=== PATIENT | female | born 1975 | race African-American/Black ===

== ENCOUNTER 2023-08-04 12:32 | Inpatient (IN) ==
--- OUTSIDE RECORDS SUMMARY | 2023-08-04 12:35 | External Medical Summary | Summary of Care ---
Author Name Unknown Organization [facility] Address [address] [place] [address] Phone [phone] Care Team Providers Care Shoe Folder Name Role Phone Song Amezcua MD Primary Care Provider [phone] [phone] Reason for Visit * Reason Onset Date Comments Precert Approved 07/24/2023 WEGOVY Encounter Details Date Type Department Care Team (Late st Contact Info) Description 07/24/2023 Telephone Nutrition & Weight Management, [facility] [address] [place] [address] Gertrudis Hernandez PA-C [address] [place] [address] Precert Approved (WEGOVY ) Allergies Active Allergy Reactions Criticality Noted Date Comments Azithromycin Other (Please comment) Medium 01/08/2022 Tingling tounge Gadolinium Other (Please comment) 03/27/2023 Itchy tongue Iodinated Contrast Media Nausea/vomiting,Ot her (Please comment) Medium 10/13/2010 Pt states nausea and vomiting with IV contrast 20 years ago-allergy modified 07/03/2017. No premedication necessary Lanolin Other (Please comment) Medium 01/08/2022 Wound dehenscience Penicillins Edema airway High 01/08/2022 documented as of this encounter (statuses as of 07/31/2023) Medications Medication Sig Dispensed Refills Start Date End Date Status Omeprazole 20 MG Oral Capsule Delayed Release (PriLOSEC) Take 1 Capsule by mouth in the morning. Active Famotidine 20 MG Oral Tablet Take 1 Tablet by mouth in the morning and 1 Tablet before bedtime. Active Fluticasone Propionate 50 MCG/ACT Nasal Suspension Administer 1 [place] into nostril in the morning. Active Albuterol Sulfate (2.5 MG/3ML) 0.083% Inhalation Nebulization Solution Inhale 1 Vial via nebulizer every 6 hours as needed for Wheezing. Active Advair Diskus 250-50 MCG/ACT Inhalation Aerosol Powder Breath Activated inhale 1 puff by mouth twice a day 180 Each 3 05/09/2022 Active Albuterol Sulfate HFA 108 (90 Base) MCG/ACT Inhalation Aerosol SolutionIndication s:Bronchitis, complicated Inhale 2 Puffs by mouth every 6 hours as needed for Wheezing. 18 g 3 05/09/2022 Active Montelukast Sodium 10 MG Oral Tablet (Singulair)Indicat ions:Mild persistent asthma without complication take 1 tablet by mouth at bedtime 90 Tablet 3 08/31/2022 Active Docusate Sodium 100 MG Oral Capsule (Colace) Take 1 Capsule by mouth in the morning and 1 Capsule before bedtime. Active Polyethylene Glycol 3350 17 GM/SCOOP Oral Powder (MiraLax) Take 17 g by mouth in the morning. Active FLUoxetine HCl 20 MG Oral Capsule (PROzac)Indication s:Depression with anxiety Take 1 Capsule by mouth in the morning. To be started 2 weeks after starting 10 mg.. 60 Capsule 07/15/2023 Active Mirena (52 MG) 20 MCG/DAY Intrauterine Intrauterine Device (Levonorgestrel) Take by intrauterine route. 01/11/2023 Active Methocarbamol 500 MG Oral Tablet (Robamol) Take 1 Tablet by mouth. 07/20/2023 Active Wegovy 0.25 MG/0.5ML Subcutaneous Solution Auto-injector (Semaglutide-Weigh t Management)Indicat ions:Class 1 obesity due to excess calories without serious comorbidity with body mass index (BMI) of 31.0 to 31.9 in adult Inject 0.25 mg under the skin once a week. 2 mL 5 07/23/2023 Active FLUoxetine HCl 10 MG Oral Capsule (PROzac)Indication s:Depression with anxiety Take 1 Capsule by mouth in the morning for 14 days. 14 Capsule 07/15/2023 documented as of this encounter (statuses as of 07/31/2023) Active Problems Problem Noted Date Diagnosed Date PPD screening test 07/31/2022 History of bilateral mastectomy 01/08/2022 History of DVT in adulthood 01/08/2022 Mild persistent asthma without complication 12/26 Gastroesophageal reflux disease without esophagi tis 01/08/2022 Irritable bowel syndrome with constipation 01/08 Overweight (BMI 25.0-29.9) 01/08/2022 documented as of this encounter (statuses as of 07/31/2023) Immunizations Name Administration Dates Next Due Hepatitis B, 0-19 yrs 09/21/1997 PPD 07/10/2023,08/06/2022 Pneumococcal Polysaccharide PPV23 (Pneumovax) Seasonal Influenza Virus Vac cine, Unspecified Formulation 12/30/2021 Seasonal Influenza, PF, 6 M & above, IM , (FluLaval or Fluzone) 12/01/2022,12/30/2021 TD, Preservative Free 09/21/2001 TDAP (age 10 and older)(Boostrix) 03/26/2014, documented as of this encounter Social History Tobacco Use Types Packs/Day Years Used Date Smoking Tobacco: Former Cigarettes Q uit: 02/26/2004 Smokeless Tobacco: Never Alcohol Use Standard Drinks/Week Comments Yes 1 (1 standard drink = 0.6 oz pur e alcohol) Hunger Vital Sign Answer Date Recorded Within the past 12 months, y ou worried that your food would run out before you got the money to buy more. Never true 07/27/19 23 Within the past 12 months, t he food you bought just didn't last and you didn't have money to get more. Never true 07/26/2022 Sex and Gender Information Value Date Recorded Sex Assigned at Female 01/06/2022 9:37 AM EST Gender Identity Female 01/06/2022 9:37 AM EST Sexual Orientation Straight 01/06/2022 9: 37 AM EST Job Start Date Occupation Industry Not on file Not on file Not on file documented as of this encounter Miscellaneous Notes * Telephone Encounter - Anabella Marcano CMA - 07/31/2023 3:13 PM EDT Left pt a detailed message * Telephone Encounter - Anabella Marcano CMA - 07/26/2023 9:47 AM EDT Images from the original note were not included. New or re-auth: new authorization Approved/Denied: Approved Drug Name and Formulation: Wegovy 0.25MG/0.5ML auto-injectors How Prescribed(directions/sig): Sig - Route: Inject 0.25 mg under the skin once a week. - Subcutaneous Day Supply: 2ml per 28 days Did you receive insurance information from outside the chart? No, received insurance information within the chart Valid auth start date: 05/25/2023 Valid auth end date: 01/24/2024 Rx Insurance Info: [employer]O [employer]IL[employer]URN Reference #: [id number] Rx Benefits Verified through/on date: [facility] 07/24/2023 Referral (TE) received from: [facility] Medication Collections Associate II 07/25/23,8:14 AM * Telephone Encounter - Anabella Marcano CMA - 07/24/2023 11:49 AM EDT Please Start prior authorization for Wegovy 0.25 MG/0.5ML Subcutaneous Solution Auto-injector (Semaglutide-Weight Management) Diagnosis Class 1 obesity due to excess calories in adult, unspecified BMI, unspecified whether serious comorbidity present [E66.09] and Abnormal weight gain [R63.5] Patient qualifies for Weight loss medication due to BMI >30 or BMI >27 with obesity related comorbidity BMI Readings from Last 2 Encounters: 07/23/23 31.02 kg/m 07/15/23 31.64 kg/m Wt Readings from Last 2 Encounters: 07/23/23 86.5 kg (190 lb 11.2 oz) 07/15/23 88.9 kg (196 lb) Gertrudis Hernandez PA-C documented in this encounter Plan of Treatment Upcoming Encounters Date Type Department Care Team (Late st Contact Info) Description 08/02/2023 12:40 PM EDT Office Visit [facility] [address] [place] [address] Gertrudis Painter CRNP [address] [place] [address] 09/16/2023 8:00 AM EDT Office Visit [facility] [address] [place] [address] Ena Rehman CRNP [address] [place] [address] 02/06/2024 10:20 AM EST Office Visit Nutrition & Weight Management, [facility] [address] [place] [address] Gertrudis Hernandez PA-C [address] [place] [address] Health Maintenance Due Date Last Done Comments Depression Screening 1989 Hepatitis B (2 of 3 - 19+ 3-dose series) 10/19/1997 09/21/1997 Pap Smear 1998 HPV/Co-Test 12/01/2007 Pneumococcal Vaccine: Pediatrics (0 to 5 Years) and At-Risk Patients (6 to 64 Years) (2 of 2 - PCV) 03/26/2015 03/26/2014 *SPIROMETRY ONCE FOR ASTHMA-ADULT 01/10/2022 COVID-19 Vaccine (2022- season) 2022 11/22/2020, 03/26/2020, 03/08/2020 Cologuard 2022 Colonoscopy 2022 Colorectal Cancer Screening 2022 Fecal Occult Blood Test 2022 Sigmoidoscopy 2022 DTaP,Tdap,and Td Vaccines (3 - Td or Tdap) 03/26/2024 03/26/2014, 08/15/2009, 09/21/2001 Diabetes Screening 07/09/2026 07/10/2023, 1 03/10/2021, 02/08/2021, Additional history exists Cervical Cancer Screening 03/27/2028 Po stponed from 12/01/2007 (Done Elsewhere) Lipid Panel 07/09/2028 07/10/2023 Hepatitis C Screening Completed 12/27/2016 Influenza Vaccine (FLU shot) Completed 12/01/2022, 12/30/2021, 12/30/2021 GARDASIL-HPV IMMUNIZATION SERIES Aged Out No longer eligible based on patient's age to complete this topic HIV Screening Discontinued MENINGOCOCCAL (MENACTRA/MENVEO) Aged Out No longer eligible based on patient's age to complete this topic documented as of this encounter Medical Devices Not on filedocumented as of this encounter Care Teams Shoe Folder Relationship Specialty Start Date End Date Song Amezcua MD [address] [place] [address] PCP - General Family Medicine 01/08/22 documented as of this encounter
--- OUTSIDE RECORDS SUMMARY | 2023-08-04 12:35 | External Medical Summary | Summary of Care ---
Author Name Unknown Organization [facility] Address [address] [place] [address] Phone [phone] Care Team Providers Care Pharmacy Picking Technician Name Role Phone Song Amezcua MD Primary Care Provider [phone] [phone] Reason for Visit * Reason Onset Date Comments Precert Approved 07/24/2023 WEGOVY Encounter Details Date Type Department Care Team (Late st Contact Info) Description 07/24/2023 Telephone Nutrition & Weight Management, [facility] [email or web address] [place] [address] Gertrudis Hernandez PA-C [email or web address] [place] [address] Precert Approved (WEGOVY ) Allergies Active Allergy [...] as of this encounter (statuses as of 07/26/2023) Medications Medication Sig Dispensed Refills Start Date End Date Status Omeprazole 20 MG Oral Capsule Delayed Release (PriLOSEC) Take 1 Capsule by mouth in the morning. Active Famotidine 20 MG Oral Tablet Take 1 Tablet by mouth in the morning and 1 Tablet before bedtime. Active Fluticasone Propionate 50 MCG/ACT Nasal Suspension Administer 1 [place] into nostril in the morning. Active Albuterol [...] mouth in the morning. Active FLUoxetine HCl 10 MG Oral Capsule (PROzac)Indication s:Depression with anxiety Take 1 Capsule by mouth in the morning for 14 days. 14 Capsule 07/15/2023 07/29/2023 Active FLUoxetine HCl 20 MG Oral Capsule (PROzac)Indication s:Depression with anxiety Take 1 Capsule by mouth in the morning. To be started 2 weeks after starting 10 mg.. 60 Capsule 07/15/2023 09/13/2023 Active Mirena (52 MG) 20 MCG/DAY Intrauterine [...] a week. 2 mL 5 07/23/2023 Active documented as of this encounter (statuses as of 07/26/2023) Active Problems Problem Noted Date Diagnosed Date PPD screening test 07/31/2022 History of bilateral mastectomy 01/08/2022 History of DVT in adulthood 01/08/2022 Mild persistent asthma without complication 12/26 Gastroesophageal reflux disease without esophagi tis 01/08/2022 Irritable bowel syndrome with constipation 01/08 Overweight (BMI 25.0-29.9) 01/08/2022 documented as of this encounter (statuses as of 07/26/2023) Immunizations Name Administration Dates Next Due Hepatitis [...] end date: 01/24/2024 Rx Insurance Info: TOÑO WILBRUN Reference #: [id number] Rx Benefits Verified through/on date: [employer] 07/24/2023 Referral (TE) received from: [facility]cribing [facility] Medication Meat Cutting Block Repairer II 07/25/23,8:14 AM * Telephone Encounter - [...] Care Team (Late st Contact Info) Description 07/29/2023 11:40 AM EDT Office Visit [facility] [address] [place] [address] Gertrudis Painter CRNP [address] [place] [address] 09/16/2023 8:00 AM EDT Office Visit [facility] [address] [place] [address] Ena Rehman CRNP [address] [place] [address] 02/06/2024 10:20 AM EST Office Visit Nutrition & Weight Management, [facility] [address] [place] [address] Gertrudis Hernandez PA-C [address] [place] [address] Health Maintenance Due Date Last Done Comments Depression Screening 1989 Hepatitis B (2 of 3 - 19+ 3-dose series) 10/19/1997 09/21/1997 Pap Smear 1998 HPV/Co-Test 12/01/2007 Pneumococcal Vaccine: Pediatrics (0 to 5 Years) and At-Risk Patients (6 to 64 Years) (2 of 2 - PCV) 03/26/2015 03/26/2014 *SPIROMETRY ONCE FOR ASTHMA-ADULT 01/10/2022 COVID-19 Vaccine ( - 2022-24 season) 2022 11/22/2020, 03/26/2020, 03/08/2020 Cologuard 2022 [...] filedocumented as of this encounter Care Teams Pharmacy Picking Technician Relationship Specialty Start Date End Date Song Amezcua MD [address] [place] [address] PCP - General Family Medicine 01/08/22 documented as of this encounter
--- OUTSIDE RECORDS SUMMARY | 2023-08-04 12:35 | External Medical Summary | Summary of Care ---
Author Name Unknown Organization [facility] Address [address] [place] [address] Phone [phone] Care Team Providers Care Profiler Operator Name Role Phone Song Amezcua MD Primary Care Provider [phone] [phone] Reason for Visit * Reason Onset Date Comments Precert Approved 07/24/2023 WEGOVY Encounter Details Date Type Department Care Team (Late st Contact Info) Description 07/24/2023 Telephone Nutrition & Weight Management, [facility] [address] [place] [address] Gertrudis Hernandez PA-C [address] [place] [address] Precert Approved (WEGOVY ) Allergies Active Allergy [...] as of this encounter (statuses as of 07/25/2023) Medications Medication Sig Dispensed Refills Start Date End Date Status Omeprazole 20 MG Oral Capsule Delayed Release (PriLOSEC) Take 1 Capsule by mouth in the morning. Active Famotidine 20 MG Oral Tablet Take 1 Tablet by mouth in the morning and 1 Tablet before bedtime. Active Fluticasone Propionate 50 MCG/ACT Nasal Suspension Administer 1 [place] into nostril in the morning. Active Albuterol [...] as of this encounter (statuses as of 07/25/2023) Active Problems Problem Noted Date Diagnosed Date PPD screening test 07/31/2022 History of bilateral mastectomy 01/08/2022 History of DVT in adulthood 01/08/2022 Mild persistent asthma without complication 12/26 Gastroesophageal reflux disease without esophagi tis 01/08/2022 Irritable bowel syndrome with constipation 01/08 Overweight (BMI 25.0-29.9) 01/08/2022 documented as of this encounter (statuses as of 07/25/2023) Immunizations Name Administration Dates Next Due Hepatitis [...] Care Team (Late st Contact Info) Description 09/16/2023 8:00 AM EDT Office Visit Family Practice [facility] [address] [place] [address] Ena Rehman CRNP [address] [place] [address] 02/06/2024 10:20 AM EST Office Visit Nutrition & Weight Management, [facility] [address] [place] [address] Gertrudis Hernandez PA-C [address] [place] [address] Health Maintenance Due Date Last Done Comments Depression Screening 1989 Hepatitis B (2 of 3 - 19+ 3-dose series) 10/19/1997 09/21/1997 Pap Smear 1998 HPV/Co-Test 12/01/2007 Pneumococcal Vaccine: Pediatrics (0 to 5 Years) and At-Risk Patients (6 to 64 Years) (2 of 2 - PCV) 03/26/2015 03/26/2014 *SPIROMETRY ONCE FOR ASTHMA-ADULT 01/10/2022 COVID-19 Vaccine (4 - 24 season) 2022 11/22/2020, 03/26/2020, 03/08/2020 Cologuard 2022 [...] filedocumented as of this encounter Care Teams Profiler Operator Relationship Specialty Start Date End Date Song Amezcua MD [address] [place] [address] PCP - General Family Medicine 01/08/22 documented as of this encounter
--- OUTSIDE RECORDS SUMMARY | 2023-08-04 12:35 | External Medical Summary | Summary of Care ---
Author Name Unknown Organization [facility] Address [address] [place] [address] Phone [phone] Care Team Providers Care Cash Shortage Investigator Name Role Phone Song Amezcua MD Primary Care Provider [phone] [phone] Encounter Details Date Type Department Care Team (Late st Contact Info) Description 07/30/2023 Result Scan Unspecified Department <No scans attached> Allergies Active Allergy Reactions Criticality Noted Date [...] as of this encounter (statuses as of 08/01/2023) Medications Medication Sig Dispensed Refills Start Date End Date Status Omeprazole 20 MG Oral Capsule Delayed Release (PriLOSEC) Take 1 Capsule by mouth in the morning. Active Famotidine 20 MG Oral Tablet Take 1 Tablet by mouth in the morning and 1 Tablet before bedtime. Active Fluticasone Propionate 50 MCG/ACT Nasal Suspension Administer 1 [place] into nostril in the morning. Active Albuterol [...] as of this encounter (statuses as of 08/01/2023) Active Problems Problem Noted Date Diagnosed Date PPD screening test 07/31/2022 History of bilateral mastectomy 01/08/2022 History of DVT in adulthood 01/08/2022 Mild persistent asthma without complication 12/26 Gastroesophageal reflux disease without esophagi tis 01/08/2022 Irritable bowel syndrome with constipation 01/08 Overweight (BMI 25.0-29.9) 01/08/2022 documented as of this encounter (statuses as of 08/01/2023) Immunizations Name Administration Dates Next Due Hepatitis [...] on file documented as of this encounter Plan of Treatment Upcoming Encounters Date Type Department Care Team (Late st Contact Info) Description 08/02/2023 12:40 PM EDT Office Visit [facility] [address] [place] [address] Gertrudis Painter CRNP [address] [place] [address] 09/16/2023 8:00 AM EDT Office Visit [facility] [address] [place] [address] Ena Rehman CRNP [address] [place] [address] 02/06/2024 10:20 AM EST Office Visit Nutrition & Weight Management, [facility] [address] [place] [address] Gertrudis Hernandez PA-C [address] [place] [address] Health Maintenance Due Date Last Done Comments Depression Screening 1989 Hepatitis B (2 of 3 - 19+ 3-dose series) 10/19/1997 09/21/1997 Pap Smear 1998 HPV/Co-Test 12/01/2007 Pneumococcal Vaccine: Pediatrics (0 to 5 Years) and At-Risk Patients (6 to 64 Years) (2 of 2 - PCV) 03/26/2015 03/26/2014 *SPIROMETRY ONCE FOR ASTHMA-ADULT 01/10/2022 COVID-19 Vaccine ( season) 2022 11/22/2020, 03/26/2020, 03/08/2020 Cologuard 2022 [...] Not on filedocumented as of this encounter Procedures Procedure Name Priority Date/Time Associated Diagnosis Comments OUTSIDE LAB RESULTS 07/30/2023 documented in this encounter Results * OUTSIDE LAB RESULTS (07/30/2023) 07/30/2023 No Physician Data Unknown LABORATORY documented in this encounter Care Teams Cash Shortage Investigator Relationship Specialty Start Date End Date Song Amezcua MD [address] [facility] [place] [address] PCP - General Family Medicine 01/08/22 documented as of this encounter
--- OUTSIDE RECORDS SUMMARY | 2023-08-04 12:35 | External Medical Summary | Summary of Care ---
Author Name Unknown Organization [facility] Address [address] [place] [address] Phone [phone] Care Team Providers Care Rn Child Name Role Phone Song Amezcua MD Primary Care Provider [phone] [phone] Reason for Visit * Reason Onset Date Comments Precert In Process 07/24/2023 29 SLIM ADAM Encounter Details Date Type Department Care Team (Late st Contact Info) Description 07/24/2023 Telephone Nutrition & Weight Management, [facility] [address] [place] [address] Gertrudis Hernandez PA-C [address] [place] [address] Precert In Process ( SLIM LUNDBERG W... Allergies Active Allergy Reactions Criticality Noted Date [...] as of this encounter (statuses as of 07/24/2023) Medications Medication Sig Dispensed Refills Start Date End Date Status Omeprazole 20 MG Oral Capsule Delayed Release (PriLOSEC) Take 1 Capsule by mouth in the morning. Active Famotidine 20 MG Oral Tablet Take 1 Tablet by mouth in the morning and 1 Tablet before bedtime. Active Fluticasone Propionate 50 MCG/ACT Nasal Suspension Administer 1 [place] into nostril in the morning. Active Albuterol [...] as of this encounter (statuses as of 07/24/2023) Active Problems Problem Noted Date Diagnosed Date PPD screening test 07/31/2022 History of bilateral mastectomy 01/08/2022 History of DVT in adulthood 01/08/2022 Mild persistent asthma without complication 12/26 Gastroesophageal reflux disease without esophagi tis 01/08/2022 Irritable bowel syndrome with constipation 01/08 Overweight (BMI 25.0-29.9) 01/08/2022 documented as of this encounter (statuses as of 07/24/2023) Immunizations Name Administration Dates Next Due Hepatitis [...] 8:00 AM EDT Office Visit Family Practice [facility] [address] [place] [address] Ena Rehman CRNP [address] [place] [address] 02/06/2024 10:20 AM EST Office Visit Nutrition & Weight Management, [facility] [address] [place] [address] Gertrudis Hernandez PA-C [address] [place] [address] Health Maintenance Due Date Last Done Comments Depression Screening 1989 Hepatitis B (2 of 3 - 19+ 3-dose series) 10/19/1997 09/21/1997 Pap Smear 1998 HPV/Co-Test 12/01/2007 Pneumococcal Vaccine: Pediatrics (0 to 5 Years) and At-Risk Patients (6 to 64 Years) (2 of 2 - PCV) 03/26/2015 03/26/2014 *SPIROMETRY ONCE FOR ASTHMA-ADULT 01/10/2022 COVID-19 Vaccine (4 - 2022-24 season) 2022 11/22/2020, 03/26/2020, 03/08/2020 [...] filedocumented as of this encounter Care Teams Rn Child Relationship Specialty Start Date End Date Song Amezcua MD [address] [place] [address] PCP - General Family Medicine 01/08/22 documented as of this encounter
--- OUTSIDE RECORDS SUMMARY | 2023-08-04 12:36 | External Medical Summary | Summary of Care ---
Author Name Unknown Organization [facility] Address [address] [place] [address] Phone [phone] Care Team Providers Care Director Of Veterans Affairs Name Role Phone Song Amezcua MD Primary Care Provider [phone] [phone] Reason for Visit * Reason Onset Date Comments MyCode - Took Form To Consider 07/10/2023 Encounter Details Date Type Department Care Team (Late st Contact Info) Description 07/10/2023 Orders Only Outcomes Research Department [address] [place], [place] [id number] Fiorella Sibley CHRA MyCode Nonconsent Documentation Allergies Active Allergy Reactions Criticality Noted Date Comments Azithromycin Other (Please comment) Medium 01/08/2022 Tingling tounge Lanolin Other (Please comment) Medium 01/08/2022 Wound dehenscience Penicillins Edema airway High 01/08/2022 documented as of this encounter (statuses as of 07/10/2023) Medications Medication Sig Dispensed Refills Start Date End Date Status Omeprazole 20 MG Oral Capsule Delayed Release (PriLOSEC) Take 1 Capsule by mouth in the morning. 0 Active Famotidine 20 MG Oral Tablet Take 1 Tablet by mouth in the morning and 1 Tablet before bedtime. 0 Active Fluticasone Propionate 50 MCG/ACT Nasal Suspension Administer 1 [place] into nostril in the morning. 0 Active Albuterol Sulfate (2.5 MG/3ML) 0.083% Inhalation Nebulization Solution Inhale 1 Vial via nebulizer every 6 hours as needed for Wheezing. 0 Active Lubiprostone 8 MCG Oral Capsule (Amitiza) Take 1 Capsule by mouth 2 times a day with morning and evening meals. 0 Active Advair Diskus 250-50 MCG/ACT Inhalation Aerosol Powder Breath Activated inhale 1 puff by mouth twice a day 180 Each 3 05/09/2022 Active methylPREDNISolone 4 MG Oral Tablet Therapy Pack (Medrol Dosepack)Indications :Bronchitis, complicated follow package directions 21 Tablet 0 05/09/2022 Active Additional Information Patient not taking.Reported on 07/10/2023 Albuterol Sulfate HFA 108 (90 Base) MCG/ACT Inhalation Aerosol SolutionIndications: Bronchitis, complicated Inhale 2 Puffs by mouth every 6 hours as needed for Wheezing. 18 g 3 05/09/2022 Active Montelukast Sodium 10 MG Oral Tablet (Singulair)Indicatio ns:Mild persistent asthma without complication take 1 tablet by mouth at bedtime 90 Tablet 3 08/31/2022 Active documented as of this encounter (statuses as of 07/10/2023) Active Problems Problem Noted Date Diagnosed Date PPD screening test 07/31/2022 History of bilateral mastectomy 01/08/2022 History of DVT in adulthood 01/08/2022 Mild persistent asthma without complication 12/26 Gastroesophageal reflux disease without esophagi tis 01/08/2022 Irritable bowel syndrome with constipation 01/08 Overweight (BMI 25.0-29.9) 01/08/2022 documented as of this encounter (statuses as of 07/10/2023) Immunizations Name Administration Dates Next Due PPD 07/10/2023,08/06/2022 Seasonal Influenza, PF, 6 M & above, IM , (FluLaval or Fluzone) 12/01/2022,12/30/2021 TDAP (age 10 and older)(Boostrix) 03/26/2014 documented as of this encounter Social History [...] on file documented as of this encounter Progress Notes * Fiorella Sibley CHRA - 07/10/2023 8:19 AM EDT MyCode Nonconsent Documentation Brionnafamilia Simmons was approached in the clinic regarding participation in the MyCode Project and did not consent. documented in this encounter Plan of Treatment Upcoming Encounters Date Type Department Care Team (Late st Contact Info) Description 07/12/2023 8:20 AM EDT Nurse Only Ancillary Langjose miguel [facility] [address] [facility] [place] [address] [facility] [address] [facility] [place] [address] Health Maintenance Due Date Last Done Comments Lipid Panel 1977 Depression Screening 1989 Hepatitis B (2 of [...] Test 2022 Sigmoidoscopy 2022 DTaP,Tdap,and Td Vaccines (2 - Td or Tdap) 03/26/2024 03/26/2014 Diabetes Screening 01/08/2025 01/08/2022, 1 04/11/2020, 05/31/2020, Additional history exists Cervical Cancer Screening 03/27/2028 Po stponed from 12/01/2007 (Done Elsewhere) Hepatitis C Screening Completed 12/27/2016 Influenza Vaccine (FLU shot) Completed 12/01/2022, 12/30/2021, 12/30/2021 GARDASIL-HPV IMMUNIZATION SERIES Aged Out No longer eligible based on patient's age to complete this topic HIV Screening Discontinued MENINGOCOCCAL (MENACTRA/MENVEO) Aged Out No longer eligible based on patient's age to complete this topic documented as of this encounter Medical Devices Not on filedocumented as of this encounter Care Teams Director Of Veterans Affairs Relationship Specialty Start Date End Date Song Amezcua MD [address] [facility] [place] [address] PCP - General Family Medicine 01/08/22 documented as of this encounter
--- OUTSIDE RECORDS SUMMARY | 2023-08-04 12:36 | External Medical Summary | Summary of Care ---
Author Name Unknown Organization [facility] Address [address] [place] [address] Phone [phone] Care Team Providers Care Industrial Cafeteria Manager Name Role Phone Song Amezcua MD Primary Care Provider [phone] [phone] Reason for Visit * Reason Comments Outpatient Testing Encounter Details Date Type Department Care Team (Late st Contact Info) Description 07/10/2023 8:20 AM EDT Laboratory Laboratory, Health system [address] [place] [id number] [facility] [address] [place] [address] Screening for cardiovascular condition; Screening for diabetes mellitus; Encounter for long-term (current) use of medications Allergies Active Allergy Reactions Criticality Noted Date [...] Propionate 50 MCG/ACT Nasal Suspension Administer 1 [place] into nostril in the morning. 0 Active [...] 07/12/2023 8:20 AM EDT Nurse Only Ancillary [facility] [place] [address] [facility] [place] [address] Nurse Eleno Bee [address] [facility] [place] [address] Pending Results Name Type Priority Associated Diagnoses Date /Time LIPID PANEL WITH DIRECT LDL IF TG IS HIGH Lab Routine Screening for cardiovascular condition 07/10/2023 8:14 AM EDT BASIC METABOLIC PANEL Lab Routine Screening for diabetes mellitus 07/10/2023 8:14 AM EDT VITAMIN B12 Lab Routine Encounter for long-term (current) use of medications 07/10/2023 8:14 AM EDT MAGNESIUM Lab Routine Encounter for long-term (current) use of medications 07/10/2023 8:14 AM EDT Health Maintenance Due Date Last Done Comments [...] Not on filedocumented as of this encounter Visit Diagnoses Diagnosis Screening for cardiovascular condition Screening for other and unspecified cardiovascular conditions Screening for diabetes mellitus Encounter for long-term (current) use of medications Encounter for long-term (current) use of other medications documented in this encounter Care Teams Industrial Cafeteria Manager Relationship Specialty Start Date End Date Song Amezcua MD [address] [place] [address] PCP - General Family Medicine 01/08/22 documented as of this encounter
--- OUTSIDE RECORDS SUMMARY | 2023-08-04 12:36 | External Medical Summary | Summary of Care ---
Author Name Unknown Organization [facility] Address [address] [place] [address] Phone [phone] Care Team Providers Care Marketing Communications Coordinator Name Role Phone Song Amezcua MD Primary Care Provider [phone] [phone] Reason for Visit * Reason Onset Date Comments Pre Cert/Prior Auth 07/24/2023 Encounter Details Date Type Department Care Team (Late st Contact Info) Description 07/24/2023 Telephone Nutrition & Weight Management, [facility] [address] [place] [address] Gertrudis Hernandez PA-C [address] [place] [address] Pre Cert/Prior Auth Allergies Active Allergy Reactions Criticality Noted Date [...] Propionate 50 MCG/ACT Nasal Suspension Administer 1 [place] into nostril in the morning. Active Albuterol [...] 8:00 AM EDT Office Visit Family Practice [facility] [address] [place] [address] Ena Rehman CRNP [address] [place] [address] 02/06/2024 10:20 AM EST Office Visit Nutrition & Weight Management, [facility] [address] [place] [address] Gertrudis Hernandez PA-C [address] [place] [address] Health Maintenance Due Date Last Done Comments [...] filedocumented as of this encounter Care Teams Marketing Communications Coordinator Relationship Specialty Start Date End Date Song Amezcua MD [address] [facility] [place] [address] PCP - General Family Medicine 01/08/22 documented as of this encounter
--- OUTSIDE RECORDS SUMMARY | 2023-08-04 12:36 | External Medical Summary ---
Author Name Unknown Address Unknown Organization K[facility] [address] [place] [address] Laboratory Report Ordering Provider Test Date Status MARCELO JOSEPH 07/10/2023 08:14:49 Final Observation Date Value Abnormality Reference (Units ) Status Vitamin B12 07/10/2023 08:14:49 [id number] (pg/mL) Final Performing Location [facility] - [address] [place] [address]
--- OUTSIDE RECORDS SUMMARY | 2023-08-04 12:36 | External Medical Summary | Summary of Care ---
Author Name Unknown Organization [facility] Address [address] [place] [address] Phone [phone] Care Team Providers Care Cardiology Fellow Name Role Phone Song Amezcua MD Primary Care Provider [phone] [phone] Reason for Visit * Reason Comments Physical-Exam Encounter Details Date Type Department Care Team (Latest Contact Info) Description 07/10/2023 7:40 AM EDT Office Visit Family Practice [facility] [address] [place] [address] Ena Rehman CRNP [address] [place] [address] Well adult exam*; Screening for tuberculosis; Screening for cardiovascular condition; Screening for diabetes mellitus; Encounter for long-term (current) use of medications; Gastroesophageal reflux disease without esophagitis; Mild persistent asthma without complication Allergies Active Allergy Reactions Criticality Noted Date [...] Propionate 50 MCG/ACT Nasal Suspension Administer 1 [place] into nostril in the morning. 0 Active [...] on file documented as of this encounter Last Filed Vital Signs Vital Sign Reading Time Taken Comments Blood Pressure 110/70 07/10/2023 7:48 AM EDT Pulse 88 07/10/2023 7:48 AM EDT Temperature - - Respiratory Rate - - Oxygen Saturation - - Inhaled Oxygen Concentration - - Weight 88.5 kg (195 lb 1 oz) 07/10/2023 7:48 AM EDT Height 167.6 cm (5' 6") 07/10/2023 7:48 AM EDT Body Mass Index 31.48 07/10/2023 7:48 AM EDT documented in this encounter Progress Notes * Ena Rehman CRNP - 07/10/2023 7:49 AM EDT Images from the original note were not included. Wellness Family Medicine Visit History of Present Illness Brionna Simmons is a very pleasant 47 year old female with PMH listed below here today for wellness visit. Noticed black floaters and flashlight last week, saw eye doctor, diagnosed with posterior vitreous detachment. Going to [facility]. Moved from [place] 2 years ago. No fever, chills, chest pain, shortness of breath, headache, nausea, vomit, diarrhea, constipation or vision changes Social History Socioeconomic History Marital status: Spouse name: Not on file Number of children: Not on file Years of education: Not on file Highest education level: Not on file Occupational History Not on file Tobacco Use Smoking status: Former Current packs/day: 0.00 Types: Cigarettes Quit date: 02/26/2004 Years since quittin.3 Smokeless tobacco: Never Substance and Sexual Activity Alcohol use: Yes Alcohol/week: 1.0 standard drink of alcohol Types: 1 1.5 oz of liquor per week Drug use: Not on file Sexual activity: Not on file Other Topics Concern Not on file Social History Narrative Not on file Social Determinants of Health Financial Resource Strain: Not on file Food Insecurity: No Food Insecurity (07/26/2022) Hunger Vital Sign Worried About Running Out of Food in the Last Year: Never true Ran Out of Food in the Last Year: Never true Transportation Needs: Not on file Physical Activity: Not on file Stress: Not on file Social Connections: Not on file Intimate Partner Violence: Not on file Housing Stability: Not on file PMH: Past Medical History: Diagnosis Date Gastroesophageal reflux disease without esophagitis 01/08/2022 History of bilateral mastectomy 01/08/2022 History of DVT in adulthood 01/08/2022 Irritable bowel syndrome with constipation 01/08/2022 Mild persistent asthma without complication 01/08/2022 Overweight (BMI 25.0-29.9) 01/08/2022 No past surgical history on file. Outpatient Medications Marked as Taking for the 07/10/23 encounter (Office Visit) with Ena Rehman CRNP Medication Sig Montelukast Sodium 10 MG Oral Tablet (Singulair) take 1 tablet by mouth at bedtime Advair Diskus 250-50 MCG/ACT Inhalation Aerosol Powder Breath Activated inhale 1 puff by mouth twice a day Albuterol Sulfate HFA 108 (90 Base) MCG/ACT Inhalation Aerosol Solution Inhale 2 Puffs by mouth every 6 hours as needed for Wheezing. Albuterol Sulfate (2.5 MG/3ML) 0.083% Inhalation Nebulization Solution Inhale 1 Vial via nebulizer every 6 hours as needed for Wheezing. Famotidine 20 MG Oral Tablet Take 1 Tablet by mouth in the morning and 1 Tablet before bedtime. Fluticasone Propionate 50 MCG/ACT Nasal Suspension Administer 1 [place] into nostril in the morning. Omeprazole 20 MG Oral Capsule Delayed Release (PriLOSEC) Take 1 Capsule by mouth in the morning. Review of patient's allergies indicates: Allergen Reactions Penicillins Edema airway Azithromycin Other (Please comment) Tingling tounge Natures Second Skin [Lanolin] Other (Please comment) Wound dehenscience Most Recent Immunizations Administered Date(s) Administered COVID-19 mRNA, LNP-s, No Preserve, 2-Dose Series (AdvanDx) 11/22/2020 PPD 08/06/2022 Seasonal Influenza, PF, 6 M & above, IM , (FluLaval or Fluzone) 12/01/2022 TDAP (age 10 and older)(Boostrix) 03/26/2014 Review of Systems: Physical Exam BP 110/70 | Pulse 88 | Ht 1.676 m (5' 6") | Wt 88.5 kg (195 lb 1 oz) | BMI 31.48 kg/m | BSA 2.03 m Physical Exam Constitutional: Appearance: Normal appearance. She is well-developed and well-groomed. HENT: Head: Normocephalic. Right Ear: Tympanic membrane, ear canal and external ear normal. Left Ear: Tympanic membrane, ear canal and external ear normal. Nose: Nose normal. Mouth/Throat: Mouth: Mucous membranes are moist. Pharynx: Oropharynx is clear. Eyes: Extraocular Movements: Extraocular movements intact. Conjunctiva/sclera: Conjunctivae normal. Pupils: Pupils are equal, round, and reactive to light. Cardiovascular: Rate and Rhythm: Normal rate and regular rhythm. Pulses: Normal pulses. Heart sounds: Normal heart sounds. Pulmonary: Effort: Pulmonary effort is normal. Breath sounds: Normal breath sounds. Abdominal: General: Bowel sounds are normal. Palpations: Abdomen is soft. Musculoskeletal: General: Normal range of motion. Cervical back: Normal range of motion. Skin: General: Skin is warm and dry. Capillary Refill: Capillary refill takes less than 2 seconds. Neurological: General: No focal deficit present. Mental Status: She is alert. Psychiatric: Mood and Affect: Mood normal. Assessment and Plan 1. Well adult exam Colonoscopy done in 2021 due to family history - due 2026 per patient PAP/mammo - [facility]PG 2023 Pneumonia vaccine done last year per pt Discussed related HM topics 2. Screening for tuberculosis - PPD 3. Screening for cardiovascular condition - LIPID PANEL WITH DIRECT LDL IF TG IS HIGH; Future 4. Screening for diabetes mellitus - BASIC METABOLIC PANEL; Future 5. Encounter for long-term (current) use of medications - VITAMIN B12; Future - MAGNESIUM; Future 6. Gastroesophageal reflux disease without esophagitis Cont omeprazole 7. Mild persistent asthma without complication Cont advair daily Wrap-Up I spent a total of 20-29 minutes (exact time 25 mins) on the date of service in preparation, delivery, and documentation of the care provided to Brionna Simmons excluding any time spent in the performance of separately billed services. Ena Rehman, MSN, [facility] [place] documented in this encounter Plan of Treatment Upcoming Encounters Date Type Department Care Team (Late st Contact Info) Description 07/12/2023 8:20 AM EDT Nurse Only Ancillary [facility] [address] [facility] [place] [address] BeeNurse jose miguel [facility] [address] [facility] [place] [address] Pending Results Name Type Priority Associated Diagnoses [...] use of medications 07/10/2023 8:14 AM EDT Scheduled Orders Name Type Priority Associated Diagnoses Orde r Schedule LIPID PANEL WITH DIRECT LDL IF TG IS HIGH Lab Routine Screening for cardiovascular condition Expected: 07/10/2023 (Approximate), Expires: 07/09/2024 BASIC METABOLIC PANEL Lab Routine Screening for diabetes mellitus Expected: 07/10/2023 (Approximate), Expires: 07/09/2024 VITAMIN B12 Lab Routine Encounter for long-term (current) use of medications Expected: 07/10/2023 (Approximate), Expires: 07/09/2024 MAGNESIUM Lab Routine Encounter for long-term (current) use of medications Expected: 07/10/2023 (Approximate), Expires: 07/09/2024 Health Maintenance Due Date Last Done Comments Lipid Panel 1977 Depression Screening 1989 Hepatitis B (2 of 3 - 19+ 3-dose series) 10/19/1997 09/21/1997 Pap Smear 1998 HPV/Co-Test 12/01/2007 Pneumococcal Vaccine: Pediatrics (0 to 5 Years) and At-Risk Patients (6 to 64 Years) (2 of 2 - PCV) 03/26/2015 03/26/2014 *SPIROMETRY ONCE FOR ASTHMA-ADULT 01/10/2022 COVID-19 Vaccine (4 - season) 2022 11/22/2020, 03/26/2020, 03/08/2020 Cologuard 2022 [...] as of this encounter Visit Diagnoses Diagnosis Well adult exam- Primary Routine general medical examination at a health care facility Screening for tuberculosis Screening examination for pulmonary tuberculosis Screening for cardiovascular condition Screening for other and unspecified cardiovascular conditions Screening for diabetes mellitus Encounter for long-term (current) use of medications Encounter for long-term (current) use of other medications Gastroesophageal reflux disease without esophagitis Esophageal reflux Mild persistent asthma without complication Unspecified asthma documented in this encounter Care Teams Cardiology Fellow Relationship Specialty Start Date End Date Song Amezcua MD [address] [place] [address] PCP - General Family Medicine 01/08/22 documented as of this encounter
--- OUTSIDE RECORDS SUMMARY | 2023-08-04 12:36 | External Medical Summary | Summary of Care ---
Author Name Unknown Organization [facility] Address [address] [place] [address] Phone [phone] Care Team Providers Care Book Solicitor Name Role Phone Song Amezcua MD Primary Care Provider [phone] -[phone] Reason for Visit * Reason Onset Date Comments TB Test Reading 07/12/2023 Encounter Details Date Type Department Care Team (Late st Contact Info) Description 07/12/2023 8:20 AM EDT [facility] [address] [place] [address] [facility] [address] [place] [address] TB Test Reading Allergies Active Allergy Reactions Criticality Noted Date Comments Azithromycin Other (Please comment) Medium 01/08/2022 Tingling tounge Lanolin Other (Please comment) Medium 01/08/2022 Wound dehenscience Penicillins Edema airway High 01/08/2022 documented as of this encounter (statuses as of 07/12/2023) Medications Medication Sig Dispensed Refills Start Date End Date Status Omeprazole 20 MG Oral Capsule Delayed Release (PriLOSEC) Take 1 Capsule by mouth in the morning. 0 Active Famotidine 20 MG Oral Tablet Take 1 Tablet by mouth in the morning and 1 Tablet before bedtime. 0 Active Fluticasone Propionate 50 MCG/ACT Nasal Suspension Administer 1 [place] into nostril in the morning. 0 Active [...] as of this encounter (statuses as of 07/12/2023) Active Problems Problem Noted Date Diagnosed Date PPD screening test 07/31/2022 History of bilateral mastectomy 01/08/2022 History of DVT in adulthood 01/08/2022 Mild persistent asthma without complication 12/26 Gastroesophageal reflux disease without esophagi tis 01/08/2022 Irritable bowel syndrome with constipation 01/08 Overweight (BMI 25.0-29.9) 01/08/2022 documented as of this encounter (statuses as of 07/12/2023) Immunizations Name Administration Dates Next Due Hepatitis [...] as of this encounter Progress Notes * Selina Quintero MED ASSIST - 07/12/2023 8:42 AM EDT Patient here for PPD reading. Reading is Negative PPD Results: 0 mm Reading confirmed by physician, as per protocol documented in this encounter Plan of Treatment Upcoming Encounters Date Type Department Care Team (Late st Contact Info) Description 08/12/2023 7:40 AM EDT Office Visit Family Practice [facility] 132 [facility] [place] [address] Ena Rehman CRNP 132 [facility] [place] [address] Health Maintenance Due Date Last Done Comments [...] filedocumented as of this encounter Care Teams Book Solicitor Relationship Specialty Start Date End Date Song Amezcua MD [address] [place] [address] PCP - General Family Medicine 01/08/22 documented as of this encounter
--- OUTSIDE RECORDS SUMMARY | 2023-08-04 12:36 | External Medical Summary | Summary of Care ---
Author Name Unknown Organization [facility] Address [address] [place] [address] Phone [phone] Care Team Providers Care Business Systems Advisor Name Role Phone Song Amezcua MD Primary Care Provider [phone] Reason for Visit * Reason Comments Weight Management The pt stated she wo uld like to discuss weight loss * Evaluate & Treat - Unlimited Visits (Within 30 days (routine)) - Pending Review Specialty Diagnoses / Procedures Referred By Contact Referred To Contact GI NUTRITION/IM / Gastroenterology Diagnoses Class 1 obesity due to excess calories without serious comorbidity with body mass index (BMI) of 31.0 to 31.9 in adult Ena Rehman CRNP [address] [place] [address] Referral ID Status Reason Start Date Expiration Date Visits Requested Visits Authorized [id number] Pending Review Specialty Services Required 07/15/[phone] Encounter Details Date Type Department Care Team (Late st Contact Info) Description 07/23/2023 8:00 AM EDT Office Visit Nutrition & Weight Management, [facility] [address] [place] [address] Gertrudis Hernandez PA-C [address] [place] [place] [address] Class 1 obesity due to excess calories without serious comorbidity with body mass index (BMI) of 31.0 to 31.9 in adult*; Abnormal weight gain; Gastroesophageal reflux disease without esophagitis Allergies Active Allergy Reactions Criticality Noted Date [...] as of this encounter (statuses as of 07/23/2023) Medications Medication Sig Dispensed Refills Start Date End Date Status Omeprazole 20 MG Oral Capsule Delayed Release (PriLOSEC) Take 1 Capsule by mouth in the morning. Active Famotidine 20 MG Oral Tablet Take 1 Tablet by mouth in the morning and 1 Tablet before bedtime. Active Fluticasone Propionate 50 MCG/ACT Nasal Suspension Administer 1 [place] into nostril in the morning. Active Albuterol Sulfate (2.5 MG/3ML) 0.083% Inhalation Nebulization Solution Inhale 1 Vial via nebulizer every 6 hours as needed for Wheezing. Active Advair Diskus 250-50 MCG/ACT Inhalation Aerosol Powder Breath Activated inhale 1 puff by mouth twice a day 180 Each 3 3 Active Albuterol Sulfate HFA 108 (90 Base) MCG/ACT Inhalation Aerosol SolutionIndicatio ns:Bronchitis, complicated Inhale 2 Puffs by mouth every 6 hours as needed for Wheezing. 18 g 3 3 Active Montelukast Sodium 10 MG Oral Tablet (Singulair)Indica tions:Mild persistent asthma without complication take 1 tablet by mouth at bedtime 90 Tablet 3 3 Active Docusate Sodium 100 MG Oral Capsule (Colace) Take 1 Capsule by mouth in the morning and 1 Capsule before bedtime. Active Polyethylene Glycol 3350 17 GM/SCOOP Oral Powder (MiraLax) Take 17 g by mouth in the morning. Active FLUoxetine HCl 10 MG Oral Capsule (PROzac)Indicatio ns:Depression with anxiety Take 1 Capsule by mouth in the morning for 14 days. 14 Capsule 4 07/29/19 24 Active FLUoxetine HCl 20 MG Oral Capsule (PROzac)Indicatio ns:Depression with anxiety Take 1 Capsule by mouth in the morning. To be started 2 weeks after starting 10 mg.. 60 Capsule 4 09/13/19 24 Active Mirena (52 MG) 20 MCG/DAY Intrauterine Intrauterine Device (Levonorgestrel) Take by intrauterine route. 3 Active Methocarbamol 500 MG Oral Tablet (Robamol) Take 1 Tablet by mouth. 4 Active Wegovy 0.25 MG/0.5ML Subcutaneous Solution Auto-injector (Semaglutide-[employer])Indica tions:Class 1 obesity due to excess calories without serious comorbidity with body mass index (BMI) of 31.0 to 31.9 in adult Inject 0.25 mg under the skin once a week. 2 mL 5 4 Active Lubiprostone 8 MCG Oral Capsule (Amitiza) Take 1 Capsule by mouth 2 times a day with morning and evening meals. 07/23/19 24 Discontinued methylPREDNISolon e 4 MG Oral Tablet Therapy Pack (Medrol Dosepack)Indicati ons:Bronchitis, complicated follow package directions 21 Tablet 3 07/23/19 24 Discontinued documented as of this encounter (statuses as of 07/23/2023) Active Problems Problem Noted Date Diagnosed Date PPD screening test 07/31/2022 History of bilateral mastectomy 01/08/2022 History of DVT in adulthood 01/08/2022 Mild persistent asthma without complication 12/26 Gastroesophageal reflux disease without esophagi tis 01/08/2022 Irritable bowel syndrome with constipation 01/08 Overweight (BMI 25.0-29.9) 01/08/2022 documented as of this encounter (statuses as of 07/23/2023) Immunizations Name Administration Dates Next Due Hepatitis [...] Sign Reading Time Taken Comments Blood Pressure 122/70 07/23/2023 8:11 AM EDT Pulse 78 07/23/2023 8:11 AM EDT Temperature 36.7 C (98.1 F) 07/23/2023 8:11 AM ED T Respiratory Rate - - Oxygen Saturation 98% 07/23/2023 8:11 AM EDT Inhaled Oxygen Concentration - - Weight 86.5 kg (190 lb 11.2 oz) 07/23/2023 8:11 AM EDT Height 167 cm (5' 5.75") 07/23/2023 8:11 AM EDT Body Mass Index 31.02 07/23/2023 8:11 AM EDT documented in this encounter Patient Instructions * Patient Instructions* Gertrudis Hernandez PA-C - 07/23/2023 8:36 AM EDT Low sugar protein shake guidelines Calories: 150-250 calories/serving Protein: Minimum of 12 grams protein/serving Sugar: Maximum of 10-15 grams of sugar/serving Wegovy - Start wegovy: inject 0.25mg subcutaneous once weekly -The motor inspection mechanic website offers discount cards to help decrease the cost of the medication -The motor inspection mechanic website has tutorial videos on how to use the pen. If you are unsure or uncomfortable using the pen for the first time, make a nurse visit in our office for teaching. - Possible side effects of wegovy include but are not limited to: GI upset, constipation, nausea, vomiting, diarrhea, gallbladder disease, & pancreatitis -Wegovy should not be used by patients with a personal or family history of medullary thyroid cancer, multiple endocrine neoplasia type II or personal history of pancreatitis -Wegovy is not indicated in . Women of childbearing years should use an effective control medication while taking Wegovy and stop 2 months prior to actively trying to become . - pt qualifies for Weight loss medication due to BMI >30 or BMI >27 with obesity related comorbidity & has no apparent contraindications - Goal is to lose ~5% wt loss in 3mo documented in this encounter Progress Notes * Gertrudis Hernandez PA-C - 07/23/2023 8:10 AM EDT [facility] CONSULTATION INITIAL CONSULT Referring Physician: HARSHIL Marshall Nursing Notes: Puneet Bae LPN 07/23/23 0811 Sign at exiting of workspace Chief Complaint Patient presents with Weight Management The pt stated she would like to discuss weight loss Neck 12.5in Waist 37in Brionna Simmons is a 47 year old patient who presents to the [facility] for further recommendations. - Initial clinic visit 07/23/2023 Weight 190 lbs Height 65.75" Body mass index is 31.02 kg/m. Wt Readings from Last 6 Encounters: 07/23/23 86.5 kg (190 lb 11.2 oz) 07/15/23 88.9 kg (196 lb) 07/10/23 88.5 kg (195 lb 1 oz) 05/09/22 80 kg (176 lb 6.4 oz) 02/02/22 81.3 kg (179 lb 3.2 oz) 01/08/22 79.8 kg (176 lb) HPI: Visit 07/23/23 The patient suffers from Class I obesity Patient is interested in the following treatment options for obesity: possible medication use. Previous Weight Management Interventions: The patient has tried weight loss in the past without significant intermediate success. Previous interventions: Self-directed. Intermittent fasting Moved her a couple years ago-- was very fit around 160 and maintained Then had surgery and wasn't able to exercise Then started school and is working from home The patient confirms any past pharmacotherapy for weight loss Phentermine. Current Diet: Describes typical diet history/24 hr recall Breakfast: eggs, sausage or childress Snacks: Lunch: oatmeal, protein powder, dried cranberries Snacks: Dinner: chicken, salad Snacks: chuy crackers Drinks: water, 1 cup coffee Restaurant meals: several times a week Activity: ADL Past Medical History Glaucoma No Hypertension: No CAD: No Congestive heart failure No Dyslipidemia: No Lipid Panel Results: Results for orders placed or performed in visit on 07/10/23 LIPID PANEL WITH DIRECT LDL IF TG IS HIGH Result Value Ref Range Triglycerides 34 <=174 mg/dL Cholesterol 178 <200 mg/dL HDL Cholesterol 65 >49 mg/dL Non-HDL Cholesterol 113 <=159 mg/dL LDL Cholesterol 106 <=129 mg/dL DVT/PE, clotting disorder: Yes Stroke: No Seizures: No Sleep Apnea: No Asthma: Yes COPD: No Patient denies personal or family history of medullary thyroid carcinoma. Patient denies personal or family history of multiple endocrine neoplasia syndrome type II Patient denies personal history of pancreatitis Fatty Liver: no Diabetes: No Hemoglobin A1C last 3 results: Lab Results Component Value Date/Time HEMOGLOBIN, [id number] LAB 5.1 02/08/2021 10:30 AM HEMOGLOBIN, [id number] LAB 5.0 05/19/2020 01:42 PM Insulin Resistance: No PCOS: No GERD: Yes: Requiring medications: Yes History of nephrolithiasis: No. Osteoarthritis: No Anxiety/Depression: Yes Patient Active Problem List Diagnosis History of bilateral mastectomy History of DVT in adulthood Mild persistent asthma without complication Gastroesophageal reflux disease without esophagitis Irritable bowel syndrome with constipation Overweight (BMI 25.0-29.9) PPD screening test No past surgical history on file. Review of patient's allergies indicates: Allergen Reactions Penicillins Edema airway Azithromycin Other (Please comment) Tingling tounge Iodinated Contrast Media Nausea/vomiting and Other (Please comment) Pt states nausea and vomiting with IV contrast 20 years ago-allergy modified 07/03/2017. No premedication necessary Natures Second Skin [Lanolin] Other (Please comment) Wound dehenscience Gadolinium Other (Please comment) Itchy tongue Current Outpatient Medications Medication Sig Dispense Refill Omeprazole 20 MG Oral Capsule Delayed Release (PriLOSEC) Take 1 Capsule by mouth in the morning. Famotidine 20 MG Oral Tablet Take 1 Tablet by mouth in the morning and 1 Tablet before bedtime. Fluticasone Propionate 50 MCG/ACT Nasal Suspension Administer 1 [place] into nostril in the morning. Albuterol Sulfate (2.5 MG/3ML) 0.083% Inhalation Nebulization Solution Inhale 1 Vial via nebulizer every 6 hours as needed for Wheezing. Lubiprostone 8 MCG Oral Capsule (Amitiza) Take 1 Capsule by mouth 2 times a day with morning and evening meals. (Patient not taking: Reported on 07/10/2023) Advair Diskus 250-50 MCG/ACT Inhalation Aerosol Powder Breath Activated inhale 1 puff by mouth twice a day 180 Each 3 methylPREDNISolone 4 MG Oral Tablet Therapy Pack (Medrol Dosepack) follow package directions (Patient not taking: Reported on 07/10/2023) 21 Tablet 0 Albuterol Sulfate HFA 108 (90 Base) MCG/ACT Inhalation Aerosol Solution Inhale 2 Puffs by mouth every 6 hours as needed for Wheezing. 18 g 3 Montelukast Sodium 10 MG Oral Tablet (Singulair) take 1 tablet by mouth at bedtime 90 Tablet 3 Docusate Sodium 100 MG Oral Capsule (Colace) Take 1 Capsule by mouth in the morning and 1 Capsule before bedtime. Polyethylene Glycol 3350 17 GM/SCOOP Oral Powder (MiraLax) Take 17 g by mouth in the morning. FLUoxetine HCl 10 MG Oral Capsule (PROzac) Take 1 Capsule by mouth in the morning for 14 days. 14 Capsule 0 FLUoxetine HCl 20 MG Oral Capsule (PROzac) Take 1 Capsule by mouth in the morning. To be started 2 weeks after starting 10 mg.. 60 Capsule 0 No current facility-administered medications for this visit. No family history on file. 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 Negative for abdominal pain, diarrhea, nausea and vomiting. Psychiatric/Behavioral: Negative for dysphoric mood. The patient is not nervous/anxious. Menstrual Cycle: No Control: IUD Physical Examination: BP 122/70 | Pulse 78 | Temp 36.7 C (98.1 F) | Ht 1.67 m (5' 5.75") | Wt 86.5 kg (190 lb 11.2 oz) | SpO2 98% | BMI 31.02 kg/m | BSA 2 m Physical Exam Vitals and nursing note reviewed. Constitutional: Appearance: Normal appearance. HENT: Head: Normocephalic and atraumatic. Cardiovascular: Normal rate. Pulmonary: Effort: Pulmonary effort is normal. No respiratory distress. Neurological: Mental Status: Alert and oriented to person, place, and time. Psychiatric: Mood and Affect: Mood normal. Assessment and Recommendation: Abnormal weight gain Body mass index is 31.02 kg/m. Class I obesity. Discussed weight management options and would like to proceed with medication weight management. Barriers are consistency. Motivators are feeling better, avoiding/reducing comorbid conditions. Patient goals were discussed in detail at visit. IMPORTANT DIETARY CHANGES WHEN TAKING INJECTABLE WEIGHT LOSS MEDICATION PROTEIN!! Not getting enough protein can contribute to hair thinning, hair loss, muscle loss and fatigue. -Minimum 60g protein per day -Aim for 20g protein per meal -Eat protein first, then fruits and vegetables, starches last -Daily protein goal 60g-100g Work to eat small portions-- larger portions can lead to indigestion, nausea, vomiting, sulfur burps. - Do NOT skip meals--eat small frequent meals/snacks throughout the day - Eat slowly--take 20-30 minutes for each meal - Chew food thoroughly (to applesauce consistency) -Try eating and drinking by 30 min if struggling with intake Foods high in sugar and carbohydrates can lead to diarrhea. - Avoid sugar sweetened drinks including regular sodas, sweet tea, and fruit juice - Eat foods high in lean protein, vegetables, fruits, fiber, & whole grains - Limit processed foods, excess sugar, refined/white carbs, & fried foods Weight loss -Aim for 1-2 pounds per week weight loss -500 calorie to 1000 calorie per day deficit but no less than 0235-1365 calories per day Exercise goals -Goal of 150 minutes per week--can be divided up however you would like -Aim for aerobic activity and muscle strengthening activities. PLAN: Goals as above Anti obesity Medication Indications: BMI >30 or BMI >27 with obesity related comorbidity & no apparent contraindications Goal is to lose ~5% wt loss in 3 mo Wegovy/Saxenda/Zepbound: start wegovy Trace RichardKiesha powell Sergthomas: no coverage without type II diabetes diagnosis Wellbutrin: Naltrexone: Topamax: Phentermine: tried in the remote past Xenical: Metformin: Patient would like to try: wegovy Wegovy - Start wegovy: inject 0.25mg subcutaneous once weekly -The motor inspection mechanic website offers discount cards to help decrease the cost of the medication -The motor inspection mechanic website has tutorial videos on how to use the pen. If you are unsure or uncomfortable using the pen for the first time, make a nurse visit in our office for teaching. - Possible side effects of wegovy include but are not limited to: GI upset, constipation, nausea, vomiting, diarrhea, gallbladder disease, & pancreatitis -Wegovy should not be used by patients with a personal or family history of medullary thyroid cancer, multiple endocrine neoplasia type II or personal history of pancreatitis -Wegovy is not indicated in . Women of childbearing years should use an effective control medication while taking Wegovy and stop 2 months prior to actively trying to become . - pt qualifies for Weight loss medication due to BMI >30 or BMI >27 with obesity related comorbidity & has no apparent contraindications - Goal is to lose ~5% wt loss in 3mo Brionna was seen today for weight management. Diagnoses and all orders for this visit: Class 1 obesity due to excess calories without serious comorbidity with body mass index (BMI) of 31.0 to 31.9 in adult Goals as above - Wegovy 0.25 MG/0.5ML Subcutaneous Solution Auto-injector (Semaglutide-Weight Management); Inject 0.25 mg under the skin once a week. Abnormal weight gain Gastroesophageal reflux disease without esophagitis Continue PPI and pepcid May worsen with larger meals/portions with GLP-1 I spent a total of 40 minutes on the date of service in preparation, delivery, and documentation ofthe care provided to Brionna Simmons excluding any time spent in the performance of separately billed services. More than 50% of my time spent with patient providing counseling about the benefits of weight loss, about the patient's nutritional status, detailed explanations about calorie count, typesof nutrients to choose, and composition of the meals. Reviewed and discussed weight, weight trends and pertinent labs and test results. Motivational interview provided in order to prepare the patientto achieve future goals. The patient agreed to try all the plan discussed and return in three months. Patient was instructed to message or call in the meantime with any further concerns or questions. Gertrudis Hernandez PA-C, [facility] Nutrition and Weight Management [facility] ([facility]) documented in this encounter Nursing Notes * Puneet Bae LPN - 07/23/2023 8:11 AM EDT Chief Complaint Patient presents with Weight Management The pt stated she would like to discuss weight loss Neck 12.5in Waist 37in documented in this encounter Plan of Treatment Upcoming Encounters Date Type Department Care Team (Late st Contact Info) Description 09/16/2023 8:00 AM EDT Office Visit Family Practice [facility] [address] [address] Ena Rehman CRNP [address] [id number] 02/06/2024 10:20 AM EST Office Visit Nutrition & Weight Management, [facility] [address] [address] Gertrudis Hernandez PA-C [address] [address] Health Maintenance Due Date Last Done Comments [...] as of this encounter Visit Diagnoses Diagnosis Class 1 obesity due to excess calories without serious comorbidity with body mass index (BMI) of 31.0 to 31.9 in adult- Primary Abnormal weight gain Gastroesophageal reflux disease without esophagitis Esophageal reflux documented in this encounter Care Teams Business Systems Advisor Relationship Specialty Start Date End Date Song Amezcua MD [address] [place] [address] PCP - General Family Medicine 01/08/22 documented as of this encounter
--- OUTSIDE RECORDS SUMMARY | 2023-08-04 12:36 | External Medical Summary | Summary of Care ---
Author Name Unknown Organization [facility] Address [address] [place] [address] Phone [phone] Care Team Providers Care Referral Agent Name Role Phone Song Amezcua MD Primary Care Provider [phone] Reason for Referral * Evaluate & Treat - Unlimited Visits (Within 30 days (routine)) - Pending Review Specialty Diagnoses / Procedures Referred By Contact Referred To Contact GI NUTRITION/IM / Gastroenterology Diagnoses Class 1 obesity due to excess calories without serious comorbidity with body mass index (BMI) of 31.0 to 31.9 in adult Ena Rehman CRNP [address] [place] [address] Referral ID Status Reason Start Date Expiration Date Visits Requested Visits Authorized [id number] Pending Review Specialty Services Required 07/15/[phone] Question Answer Referral Priority Within 30 days (routine) Where should this appointment be scheduled? [facility] For what condition is the patient being seen? Weight Loss Medication Reason for Visit * Reason Comments Follow Up Pt here to discuss w eight loss, and asking what she can take to help with that. Encounter Details Date Type Department Care Team (Late st Contact Info) Description 07/15/2023 8:00 AM EDT Office Visit Family Practice [facility] [address] [address] Ena Rehman CRNP [address] [address] Depression with anxiety*; Class 1 obesity due to excess calories without serious comorbidity with body mass index (BMI) of 31.0 to 31.9 in adult Allergies Active Allergy Reactions Criticality Noted Date Comments Azithromycin Other (Please comment) Medium 01/08/2022 Tingling tounge Lanolin Other (Please comment) Medium 01/08/2022 Wound dehenscience Penicillins Edema airway High 01/08/2022 documented as of this encounter (statuses as of 07/15/2023) Medications Medication Sig Dispensed Refills Start Date End Date Status Omeprazole 20 MG Oral Capsule Delayed Release (PriLOSEC) Take 1 Capsule by mouth in the morning. Active Famotidine 20 MG Oral Tablet Take 1 Tablet by mouth in the morning and 1 Tablet before bedtime. Active Fluticasone Propionate 50 MCG/ACT Nasal Suspension Administer 1 Gratz into nostril in the morning. Active Albuterol Sulfate (2.5 MG/3ML) 0.083% Inhalation Nebulization Solution Inhale 1 Vial via nebulizer every 6 hours as needed for Wheezing. Active Lubiprostone 8 MCG Oral Capsule (Amitiza) Take 1 Capsule by mouth 2 times a day with morning and evening meals. Active Advair Diskus 250-50 MCG/ACT Inhalation Aerosol Powder Breath Activated inhale 1 puff by mouth twice a day 180 Each 3 05/09/2022 Active methylPREDNISolone 4 MG Oral Tablet Therapy Pack (Medrol Dosepack)Indication s:Bronchitis, complicated follow package directions 21 Tablet 05/09/2022 Active Additional Information Patient not taking.Reported on 07/10/2023 Albuterol Sulfate HFA 108 (90 Base) MCG/ACT Inhalation Aerosol SolutionIndications :Bronchitis, complicated Inhale 2 Puffs by mouth every 6 hours as needed for Wheezing. 18 g 3 05/09/2022 Active Montelukast Sodium 10 MG Oral Tablet (Singulair)Indicati ons:Mild persistent asthma without complication take 1 tablet by mouth at bedtime 90 Tablet 3 08/31/2022 Active Docusate Sodium 100 MG Oral Capsule (Colace) Take 1 Capsule by mouth in the morning and 1 Capsule before bedtime. Active Polyethylene Glycol 3350 17 GM/SCOOP Oral Powder (MiraLax) Take 17 g by mouth in the morning. Active FLUoxetine HCl 10 MG Oral Capsule (PROzac)Indications :Depression with anxiety Take 1 Capsule by mouth in the morning for 14 days. 14 Capsule 07/15/2023 07/29/2023 Active FLUoxetine HCl 20 MG Oral Capsule (PROzac)Indications :Depression with anxiety Take 1 Capsule by mouth in the morning. To be started 2 weeks after starting 10 mg.. 60 Capsule 07/15/2023 09/13/2023 Active documented as of this encounter (statuses as of 07/15/2023) Active Problems Problem Noted Date Diagnosed Date PPD screening test 07/31/2022 History of bilateral mastectomy 01/08/2022 History of DVT in adulthood 01/08/2022 Mild persistent asthma without complication 12/26 Gastroesophageal reflux disease without esophagi tis 01/08/2022 Irritable bowel syndrome with constipation 01/08 Overweight (BMI 25.0-29.9) 01/08/2022 documented as of this encounter (statuses as of 07/15/2023) Immunizations Name Administration Dates Next Due Hepatitis [...] Cigarettes Q uit: 02/26/2004 Smokeless Tobacco: Never Tobacco Cessation:Counseling Given: Not Answered Alcohol Use Standard Drinks/Week Comments Yes 1 [...] Sign Reading Time Taken Comments Blood Pressure 110/62 07/15/2023 8:07 AM EDT Pulse 55 07/15/2023 8:07 AM EDT Temperature 36.7 C (98 F) 07/15/2023 8:07 AM EDT Respiratory Rate 16 07/15/2023 8:07 AM EDT Oxygen Saturation - - Inhaled Oxygen Concentration - - Weight 88.9 kg (196 lb) 07/15/2023 8:07 AM EDT Height - - Body Mass Index 31.64 07/10/2023 7:48 AM EDT documented in this encounter Progress Notes * Ena Rehman CRNP - 07/15/2023 8:09 AM EDT Images from the original note were not included. Follow up Family Medicine Visit History of Present Illness Brionna Simmons is a very pleasant 47 year old female with PMH listed below presenting with mood andweight loss. 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 Anxiety, anhedonia, stress, and weight gain Interested in medication to help her symptoms Never had med for depression or anxiety Used to be very active and fit when working on floor Started back on lifestyle modification - Walking 10K x 3 times/ weeks. Eating not much -- smaller meals. Denies binge eating or drinking calories. Intermittent fasting was effective for her in past, plan to restart. Social History Socioeconomic History Marital status: Spouse [...] 01/08/2022 No past surgical history on file. Current Outpatient Medications Medication Sig Dispense Refill Docusate Sodium 100 MG Oral Capsule (Colace) Take 1 Capsule by mouth in the morning and 1 Capsule before bedtime. Polyethylene Glycol 3350 17 GM/SCOOP Oral Powder (MiraLax) Take 17 g by mouth in the morning. Montelukast Sodium 10 MG Oral Tablet (Singulair) take 1 tablet by mouth at bedtime 90 Tablet 3 Advair Diskus 250-50 MCG/ACT Inhalation Aerosol Powder Breath Activated inhale 1 puff by mouth twice a day 180 Each 3 Famotidine 20 MG Oral Tablet Take 1 Tablet by mouth in the morning and 1 Tablet before bedtime. Fluticasone Propionate 50 MCG/ACT Nasal Suspension Administer 1 Gratz into nostril in the morning. Omeprazole 20 MG Oral Capsule Delayed Release (PriLOSEC) Take 1 Capsule by mouth in the morning. Albuterol Sulfate HFA 108 (90 Base) MCG/ACT Inhalation Aerosol Solution Inhale 2 Puffs by mouth every 6 hours as needed for Wheezing. 18 g 3 methylPREDNISolone 4 MG Oral Tablet Therapy Pack (Medrol Dosepack) follow package directions (Patient not taking: Reported on 07/10/2023) 21 Tablet 0 Albuterol Sulfate (2.5 MG/3ML) 0.083% Inhalation Nebulization Solution Inhale 1 Vial via nebulizer every 6 hours as needed for Wheezing. Lubiprostone 8 MCG Oral Capsule (Amitiza) Take 1 Capsule by mouth 2 times a day with morning and evening meals. (Patient not taking: Reported on 07/10/2023) No current facility-administered medications for this visit. Review of patient's allergies indicates: Allergen Reactions Penicillins Edema airway Azithromycin Other (Please comment) Tingling tounge Natures Second Skin [Lanolin] Other (Please comment) Wound dehenscience Most Recent Immunizations Administered Date(s) Administered COVID-19 mRNA, LNP-s, No Preserve, 2-Dose Series ([employer]) 11/22/2020 Hepatitis B, 0-19 yrs 09/21/1997 PPD 07/10/2023 Pneumococcal Polysaccharide PPV23 (Pneumovax) 03/26/2014 Seasonal Influenza Virus Vaccine, Unspecified Formulation 12/30/2021 Seasonal Influenza, PF, 6 M & above, IM , (FluLaval or Fluzone) 12/01/2022 TD, Preservative Free 09/21/2001 TDAP (age 10 and older)(Boostrix) 03/26/2014 Review of Systems: Physical Exam BP 110/62 | Pulse 55 | Temp 36.7 C (98 F) (Tympanic) | Resp 16 | Wt 88.9 kg (196 lb) | BMI 31.64 kg/m | BSA 2.03 m Physical Exam Constitutional: Appearance: Normal appearance. HENT: Head: Normocephalic. Musculoskeletal: Cervical back: Neck supple. Skin: General: Skin is warm. Neurological: Mental Status: She is alert and oriented to person, place, and time. Psychiatric: Mood and Affect: Mood normal. Assessment and Plan 1. Depression with anxiety Discussed r/b/se -- pt agreeable to start prozac Continue therapy Will f/u win in 2 months - FLUoxetine HCl 10 MG Oral Capsule (PROzac); Take 1 Capsule by mouth in the morning for 14 days. Dispense: 14 Capsule; Refill: 0 - FLUoxetine HCl 20 MG Oral Capsule (PROzac); Take 1 Capsule by mouth in the morning. To be started2 weeks after starting 10 mg.. Dispense: 60 Capsule; Refill: 0 2. 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 I spent a total of 20-29 minutes (exact time 25 mins) on the date of service in preparation, delivery, and documentation of the care provided to Brionna Simmons excluding any time spent in the performance of separately billed services. Ena Rehman, MSN, [facility] documented in this encounter Plan of Treatment Upcoming Encounters Date Type Department Care Team (Late st Contact Info) Description 07/23/2023 8:00 AM EDT Office Visit Nutrition & Weight Management, [facility] [address] [address] Gertrudis Hernandez PA-C [address] [place] [address] 09/16/2023 8:00 AM EDT Office Visit Family Practice [facility] [address] [address] Ena Rehman CRNP [address] [address] Scheduled Referrals Name Type Priority Associated Diagnoses Orde r Schedule GI NUTRITION REFERRAL OP Referral Within 30 days (routine) Class 1 obesity due to excess calories without serious comorbidity with body mass index (BMI) of 31.0 to 31.9 in adult Ordered: 07/15/2023 Health Maintenance Due Date Last Done Comments Depression Screening 1989 Hepatitis B (2 of 3 - 19+ 3-dose series) 10/19/1997 09/21/1997 Pap Smear 1998 HPV/Co-Test 12/01/2007 Pneumococcal Vaccine: Pediatrics (0 to 5 Years) and At-Risk Patients (6 to 64 Years) (2 of 2 - PCV) 03/26/2015 03/26/2014 *SPIROMETRY ONCE FOR ASTHMA-ADULT 01/10/2022 COVID-19 Vaccine ( - 24 season) 2022 11/22/2020, 03/26/2020, 03/08/2020 [...] as of this encounter Visit Diagnoses Diagnosis Depression with anxiety- Primary Dysthymic disorder Class 1 obesity due to excess calories without serious comorbidity with body mass index (BMI) of 31.0 to 31.9 in adult documented in this encounter Care Teams Referral Agent Relationship Specialty Start Date End Date Song Amezcua MD [address] [place] [id number] PCP - General Family Medicine 01/08/22 documented as of this encounter"
--- OUTSIDE RECORDS SUMMARY | 2023-08-04 12:36 | External Medical Summary ---
Author Name Unknown Address Unknown Organization [id number]:[facility] [place] - [address] [facility] [address] Laboratory Report Ordering Provider Test Date Status JAKEROBERTSON 07/10/2023 08:14:49 Final Observation Date Value Abnormality Reference (Units ) Status Triglyceride 07/10/2023 08:14:49 34 <=174 ( mg/dL) Final Triglyceride Reference Range s (mg/dL):
<150 Acceptable
150-174 Borderline high
175-499 High
>=500 Very high Cholesterol 07/10/2023 08:14:49 178 <200 (mg /dL) Final Total Cholesterol Reference Ranges (mg/dL):
<200 Desirable
200-239 Borderline high
>=240 High HDL 07/10/2023 08:14:49 65 >49 (mg/dL ) Final HDL Cholesterol Reference Ra nges (mg/dL):
>=60 High (Desirable)
<50 Low (Undesirable) For Females
<40 Low (Undesirable) For Males NON-HDL CHOLESTEROL 07/10/2023 08:14:49 113 <=159 (mg/dL) Final Non-HDL Cholesterol Referenc e Range (mg/dL):
<100 Target level for high risk ASCVD patient
<130 Optimal for general population
130-159 Near optimal for general population
160-189 Borderline High
190-219 High
>=220 Very High LDL, (calculated) 07/10/2023 08:14:49 106 <= 129 (mg/dL) Final LDL Cholesterol Reference Ra nges (mg/dL):
<70 Target level for high risk ASCVD patient
<100 Optimal for general population
100-129 Near optimal for general population
130-159 Borderline high
160-189 High
>=190 Very high Performing Location [facility]ORY [facility] - [address] [place] [address]
--- OUTSIDE RECORDS SUMMARY | 2023-08-04 12:36 | External Medical Summary ---
Author Name Unknown Address Unknown Organization [id number] [address] [place] [address] Laboratory Report Ordering Provider Test Date Status MARCELO JOSEPH 07/10/2023 08:14:49 Final Observation Date Value Abnormality Reference (Units ) Status BUN 07/10/2023 08:14:49 10 6-20 (mg/dL) Final Creatinine 07/10/2023 08:14:49 0.9 0.5-1.0 (mg/dL) Final Glomerular filtration rate/1.73 sq M.predicted [Volume Rate/Area] in Serum, Plasma or Blood by Creatinine-based formula (CKD-EPI) 07/10/2023 08:14:49 81 >=60 (mL/min) Final eGFR is calculated based on the CKD-EPI 2020 equation Sodium 07/10/2023 08:14:49 140 135-146 (m mol/L) Final Potassium 07/10/2023 08:14:49 4.0 3.5-5.1 (m mol/L) Final Cl 07/10/2023 08:14:49 103 98-107 (mm ol/L) Final CO2 07/10/2023 08:14:49 28 22-32 (mmo l/L) Final Anion gap 07/10/2023 08:14:49 9 7-15 (mmol /L) Final Glucose 07/10/2023 08:14:49 90 70-120 (mg /dL) Final Calcium 07/10/2023 08:14:49 9.3 8.4-10.2 ( mg/dL) Final Performing Location [facility] [place] [address] - [address] [place] [address]
--- OUTSIDE RECORDS SUMMARY | 2023-08-04 12:36 | External Medical Summary ---
Author Name Unknown Address Unknown Organization [id number]:[facility] - [address] [place] [address] Laboratory Report Ordering Provider Test Date Status MARCELO JOSEPH 07/10/2023 08:14:49 Final Observation Date Value Abnormality Reference (Units ) Status Magnesium 07/10/2023 08:14:49 1.9 1.5-2.6 (m g/dL) Final Performing Location [facility]ATORY [facility] - [address] [place] [address]
--- NOTE | 2023-08-04 12:41 | Emergency Department Note ---
Impression & Plan Acute pericardial effusion, Volume overload, Dilation of pulmonary artery, Arthralgia, Lyme disease, SOB (shortness of breath) ED Provider Note CHIEF COMPLAINT: Face and neck swelling with shortness of breath HISTORY OF PRESENTING ILLNESS: This 47-year-old female patient presents to the emergency department for evaluation of swelling in her face and neck as well as shortness of breath. She gained 10 pounds in the past week. She was diagnosed with Lyme disease 2 days ago. She was started on Doxycycline 2 days ago when she saw her PCP. She has been in the ER in [place] twice since for "weird" symptoms. She then started with swelling in her bilateral legs 6 days ago. Has also been having a lot of joint pains that she thinks is coming from her Lyme Disease. Now her hands, face, and neck is swollen and she is SOB. The symptoms started before the Doxycycline, but has been getting worse. She has been on a steroid taper 5 days ago through the ER for possible cervical radiculopathy. She had an x-ray of her neck, but no other imaging and no CT scans in the ER. She has tightness in her chest, but not necessarily chest pain. She is also having abdominal pain and bilateral flank pain. Feels like her abdomen is filling up with fluid as well. Sometimes feels like her legs are 10 lbs each and has intermittent tingling. Denies fevers or URI symptoms. Denies any urinary symptoms or problems with her BMs. She has a Mirena so does not get her periods. She does not feel that there is a chance of . REVIEW OF SYSTEMS: See HPI for pertinent positives and pertinent negatives. ALLERGIES: Z-shane, nausea with contrast dye, Gadolinium, PCN MEDICATIONS: See below PAST MEDICAL HISTORY: See below PHYSICAL EXAM: VITALS: Vitals are noted on the nurse's note and reviewed by myself. GENERAL: No acute distress, non-diaphoretic. SKIN: No obvious rashes or abnormal skin lesions. Capillary reflex less than 2 seconds. HEAD: No scalp tenderness. No step-offs felt. EYES: Pupils equal round and reactive to light and accommodation. Conjunctivae without injection, sclerae without icterus. Extraocular movements intact without pain. NOSE: Patent, turbinates without inflammation or discharge. No sinus tenderness. No septal hematoma or bleeding. FACE: No facial bone tenderness. Full range of motion of the jaw without tenderness. No facial droop. MOUTH: Mucous membranes moist. Uvula midline. Airway patent. Tongue does not deviate. NECK: Supple without nuchal rigidity. Cervical spine is nontender. There is some fullness on both sides of the neck as well as the front of the neck. She is tender to palpation over these areas. No crepitus is felt. HEART: Regular rate and rhythm without murmurs gallops or rubs. LUNGS: Clear to auscultation bilaterally without wheezes, rales or rhonchi. No retractions or accessory muscle use. No chest wall tenderness. No crepitus felt. ABDOMEN: Positive bowel sounds x 4. Abdomen is slightly distended, but no obvious ascites. Soft, diffusely tender to palpation. No masses or organomegaly. No guarding or rebound tenderness. MUSCULOSKELETAL: No tenderness of the thoracic or lumbar spine or paraspinal muscles. The patient's bilateral lower extremities are edematous and tender to palpation mainly over the bilateral calves. No bony tenderness to palpation of the bilateral upper or lower extremities. Peripheral pulses 2+ and equal in the bilateral upper and lower extremities. NEURO: Patient was alert and oriented to person place and time. Normal mental status exam. Normal sensation to light and sharp touch. No focal neurological deficits. DIFFERENTIAL DIAGNOSIS: Differential diagnosis includes angina, NM, pericarditis, myocarditis, aortic dissection, pleurisy, pneumothorax, PE, pneumonia, pneumomediastinum, esophagitis, esophageal spasm, GERD, perforated esophagus, perforated duodenal/gastric ulcer, pancreatitis, cholecystitis, costochondritis, musculoskeletal, bronchitis, URI, hepatitis, pancreatitis, cholecystitis, cholelithiasis, appendicitis, kidney stone, pyelonephritis, UTI, gastritis, gastroenteritis, mesenteric adenitis, obstruction, constipation, hernia, abdominal abscess, perforation, diverticulitis, IBD, ischemic colitis, abdominal aortic aneurysm, , ectopic , ovarian cyst, ovarian torsion, acute salpingitis, or others. ED COURSE AND MEDICAL DECISION MAKING: MONITOR: Continuous classroom monitor: Order was placed for continuous classroom monitor. Patient was placed on the classroom monitor and continuous pulse ox. Patient was noted to be in normal sinus rhythm at an initial rate of 74 bpm per my interpretation. EKG: EKG was interpreted by myself as normal sinus rhythm at 88 bpm with possible left atrial enlargement and T wave abnormality. No acute ST elevation. No previous EKGs to compare. MEDICATIONS GIVEN: 500 mL normal saline solution bolus. Benadryl 50 mg IV, Zofran 4 mg IV, and Solu-Medrol 60 mg IV for pretreatment of the IV contrast. Magnesium 1 g IV. Potassium chloride 40 meq p.o. INTERPRETATION OF LABS: I interpreted the labs with full lab results as below in the lab section of this note. White blood cell count normal at 8.56. Hemoglobin low at 11.6. Platelet count normal at 237. Coags were normal. Potassium low at 3.2 and ALT elevated at 54, but CMP otherwise normal. Magnesium slightly low at 1.6. BNP elevated at 220. Lipase normal. Lactate and procalcitonin were normal. TSH normal. High-sensitivity troponin normal. Serum hCG negative. Urinalysis with trace ketones, but otherwise negative. Babesia and Anaplasma smear negative with DNA PCR still pending. INTERPRETATION OF IMAGING: Imaging studies were interpreted by myself and read by radiology as per the imaging section of this note. CT scans of the soft tissue neck with IV contrast showed a mildly enlarged and heterogeneous thyroid, but no other acute abnormalities. There are some pleural effusions noted in the upper chest. CTA of the chest and CT scan of the abdomen pelvis with IV contrast showed no evidence for PE. The heart is mildly enlarged and there is a small pericardial effusion. Small pleural effusions with dependent atelectasis. Dilation of the pulmonary trunk suggestive of pulmonary artery hypertension. The bladder wall appears circumferentially thickened and should be correlated with urinalysis. Free fluid in the cul-de-sac is nonspecific and likely physiologic. Venous Doppler of the bilateral lower extremities was negative for DVT, SVT, or other acute abnormalities. CONSULTATIONS: On-call hospitalist MDM SUMMARY: I examined the patient. The patient states that she has been having "weird" symptoms since . She was seen twice in the ER in [place]. The patient states that she has had increasing swelling in her legs, neck, abdomen, and chest and has gained 10 pounds. She is also now feeling short of breath and has pain in her neck and abdomen as well as her legs. She was just diagnosed with Lyme disease 2 days ago and started on doxycycline. She is concerned because her symptoms are getting progressively worse. An IV lock was placed and labs were drawn. Laboratory studies as above with hemoglobin of 11.6, magnesium 1.6, potassium 3.2, and BNP 220. Remainder of the studies without significant abnormalities. EKG shows nonspecific changes, but high-sensitivity troponin normal. CT scans of the soft tissue neck with IV contrast, CTA of the chest, and CT of the abdomen pelvis with IV contrast shows a mildly enlarged heart with a small pericardial effusion as well as small pleural effusions and dependent atelectasis. The patient also has dilation of the pulmonary trunk suggestive of pulmonary artery hypertension which is new per patient. The patient was recently diagnosed with Lyme disease and there is concern for possible Lyme carditis. The patient may also be experiencing an initial episode of CHF versus other etiologies. I had a meaningful discussion about this patient with Dr. Rizo who agrees with my assessment and the treatment plan. We feel the patient requires admission for further evaluation and treatment. I spoke with the on-call hospitalist who agrees to admit the patient for further management. Please refer to their dictation for further details. The patient's care was transferred in stable condition. DIAGNOSIS: Pericardial effusion Possible pulmonary hypertension Elevated BNP Shortness of breath Joint pains Recent diagnosis of Lyme disease Past Med/Surg History Problem List (Updated 08/04/23 @ 20:14 by Sujatha López PA-C) SOB (shortness of breath) (Acute) Acute pericardial effusion (Acute) Lyme disease (Acute) Fatigue Arthralgia (Acute) Anemia Dilation of pulmonary artery (Acute) Volume overload (Acute) Superficial thrombophlebitis catheter-associated in R antecub managed with eliquis for short term Deficiency of von Willebrand factor Patient was [id number] on her testing, but has h/o postop bleeding and dehiscence that was corrected with DDAVP use during other surgeries. Asthma Abnormal uterine bleeding (AUB) Hot flashes Fibroids Endometriosis determined by laparoscopy Medical History Family history of reaction to anesthesia father - nausea. Nausea after anesthesia Blood disorder Pt has hx of bleeding issues after surgery and wound dehiscence / testing done and inconclusive. GERD (gastroesophageal reflux disease) IBS (irritable bowel syndrome) History of blood clots s/p surgery , near iv placement area - right arm. 3 yr ago. Blood thinner and since discontinued. Asthma well controlled/last use rescue inhaler last week /weather changes percautionary /no symptoms. Surgical History History of D&C History of endoscopy History of colonoscopy History of colposcopy maybe around age 20-25. She's not 100% sure in that range when it occurred. S/P section H/O mastectomy 2019. Prophy for fam hx of breast cancer and many personal breast surgeries with implants failing in 2021 that were subsequently fixed Dec 2021; found pre-cancer at time of mastectomy. Family History Grandmother (Maternal) Breast cancer great grandmother Aunt Breast cancer maternal paternal Colorectal cancer paternal Father Prostate cancer Brother Prostate cancer Grandfather (Maternal) Prostate cancer Grandfather (Paternal) Prostate cancer Uncle Prostate cancer Denies family history of Ovarian cancer Social History Smoking Status: Former smoker Tobacco Type: Cigarettes Do You Dip or Chew Tobacco: No; Hx Alcohol Use: No Hx Substance Use: No Preferred Language: Ukrainian Communication Ability: Effective Market Manager Required: No Beliefs That Will Affect Care: None Current Living Situation: Spouse and Family Feels Safe at Home: Yes Assistive Devices: Contacts and Glasses Allergies Allergies Allergy/AdvReac Type Severity Reaction Status Date / Time azithromycin Allergy Intermediate tingly Verified 08/04/23 16:17 [From Zithromax Z-Shane] mouth and tongue Gadolinium-Containing Allergy Intermediate tingling Verified 08/04/23 16:17 Contrast Medi mouth and tongue Penicillins Allergy Intermediate tingly Verified 08/04/23 16:17 mouth and tongue contrast dye Allergy Intermediate tingling Uncoded 08/04/23 16:17 mouth and tongue sutures AdvReac Severe polysorb Uncoded 08/04/23 16:17 and monocryl - wound dehiscencse. Home Meds Home Medications Medication Instructions Recorded Confirmed albuterol sulfate 90 mcg/actuation 1 inh inhalation UD PRN asthma 01/11/23 08/04/23 aerosol inhaler fluticasone 250 mcg-salmeterol 50 1 ea inhalation BID 01/11/23 08/04/23 mcg/dose blistr powdr for inhalation (Advair Diskus) levonorgestrel 21 mcg/24 hr (up to 1 device intrauterine CONTINOUS 01/11/23 08/04/23 8 years) 52 mg intrauterine device (Mirena) montelukast 10 mg tablet 10 mg PO HS 01/11/23 08/04/23 famotidine 10 mg tablet 10 mg PO UD PRN gerd 03/01/23 08/04/23 omeprazole magnesium 20 mg 20 mg PO DIRECTED PRN gerd 03/01/23 08/04/23 tablet,delayed release (Prilosec OTC) albuterol sulfate 2.5 mg/3 mL 2.5 mg inhalation Q4H PRN Wheezing 08/04/23 08/04/23 (0.083 %) solution for nebulization cetirizine 10 mg tablet (Zyrtec) 10 mg PO DAILY 08/04/23 08/04/23 doxycycline hyclate 100 mg tablet 100 mg PO BID 08/04/23 08/04/23 fluticasone propionate 50 2 spray intranasal DAILY 08/04/23 08/04/23 mcg/actuation nasal spray,suspension prednisone 10 mg tablet 0 mg PO DIRECTED 08/04/23 08/04/23 Results & Data (ED) Vital Signs Vital Signs - 24 hr 08/04/23 12:32 08/04/23 13:24 08/04/23 16:07 Temperature 36.6 C Temperature Source Temporal Artery Scan Pulse Rate 102 H 78 Pulse Rate [Finger] 75 Pulse Rhythm [Finger] Regular Pulse Strength [Finger] Normal Respiratory Rate 18 20 Respiratory Effort / Characteristics Non-Labored Spontaneous Respiratory Depth Normal Blood Pressure 155/85 H Blood Pressure [Left Arm] 149/89 H Blood Pressure Mean 108 Blood Pressure Mean [Left Arm] 109 Blood Pressure Position [Left Arm] Sitting Pulse Oximetry 97 97 Oxygen Delivery Method Room Air Sepsis Recent Fever Within 48 Hours No Sepsis New/Unexplained Change in Mental Status N/A Sepsis Action Taken by Nursing No Action Required 08/04/23 17:21 Temperature Temperature Source Pulse Rate 78 Pulse Rate [Finger] Pulse Rhythm [Finger] Pulse Strength [Finger] Respiratory Rate Respiratory Effort / Characteristics Respiratory Depth Blood Pressure Blood Pressure [Left Arm] Blood Pressure Mean Blood Pressure Mean [Left Arm] Blood Pressure Position [Left Arm] Pulse Oximetry Oxygen Delivery Method Sepsis Recent Fever Within 48 Hours Sepsis New/Unexplained Change in Mental Status Sepsis Action Taken by Nursing Laboratory Data 08/04/23 13:00 08/04/23 13:00 Lab Results 08/04/23 08/04/23 Range/Units 13:00 13:12 WBC 8.56 (4.8-10.8) K/ul RBC 3.65 L (4.20-5.40) M/uL Hgb 11.6 L (12.0-16.0) g/dl Hct 34.2 L (37.0-47.0) % MCV 93.7 (80.0-100.0) fL MCH 31.8 (25.0-34.0) pg MCHC 33.9 (32.0-36.0) g/dL RDW Std Deviation 43.3 (36.4-46.3) fL RDW Coeff of Sixto 12.6 (11.5-14.5) % Plt Count 237 (130-400) K/uL MPV 11.4 (9.4-12.4) fL Immature Gran % (Auto) 0.9 % Neut % (Auto) 70.4 % Lymph % (Auto) 17.2 % [place] % (Auto) 10.6 % Eos % (Auto) 0.1 % Baso % (Auto) 0.8 % Neut # (Auto) 6.02 (1.40-6.50) K/uL Lymph # (Auto) 1.47 (1.20-3.40) K/uL [place] # (Auto) 0.91 H (0.11-0.59) K/uL Eos # (Auto) 0.01 (0.00-0.50) K/uL Baso # (Auto) 0.07 (0.00-0.20) K/uL Immature Gran # (Auto) 0.08 (0.01-0.20) K/uL PT 11.7 (9.0-12.0) Seconds INR 1.1 (0.9-1.1) APTT 24 (21-31) Seconds PTT Ratio 0.9 Sodium 139 (136-145) mmol/L Potassium 3.2 L (3.5-5.1) mmol/L Chloride 103 (98-107) mmol/L Carbon Dioxide 31 (21-32) mmol/L Anion Gap 5 (3-11) BUN 13 (6-23) mg/dl Creatinine 0.94 (0.6-1.2) mg/dl Est Cr Clr Drug Dosing 87.6 ml/min Est GFR ( Amer) 84.9 ml/min Est GFR (Non-Af Amer) 73.3 ml/min BUN/Creatinine Ratio 13.8 (10-20) Glucose 84 (70-99(Fasting)) mg/dl Lactate 1.0 (0.4-2.0) mmol/L Calcium 9.1 (8.6-10.3) mg/dl Magnesium 1.6 L (1.7-2.4) mg/dl Total Bilirubin 0.5 (0.2-1.0) mg/dl AST 21 (13-39) U/L ALT 54 H (7-52) U/L Alkaline Phosphatase 46 (34-104) U/L Troponin I High Sens 3.8 (0-14) pg/ml B-Natriuretic Peptide 220 H (0-100) pg/ml Total Protein 6.7 (6.0-8.3) gm/dl Albumin 3.5 (3.4-5.0) gm/dl Globulin 3.2 (2.5-4.0) gm/dl Albumin/Globulin Ratio 1.1 (0.9-2) Lipase 56 (11-82) U/L Procalcitonin < 0.02 (0-0.5) ng/ml TSH 0.947 (0.300-4.500) uIu/ml HCG, Qual Negative (Negative) Urine Color Yellow Urine Appearance Clear (Clear) Urine pH 6.0 (4.5-7.5) Ur Specific [place] 1.018 (1.000-1.030) Urine Protein Negative (Negative) Urine Glucose (UA) Negative (Negative) Urine Ketones Trace H (Negative) Urine Blood Negative (Negative) Urine Nitrite Negative (Negative) Urine Bilirubin Negative (Negative) Urine Urobilinogen Negative (Negative) Ur Leukocyte Esterase Negative (Negative) Anaplasma Smear See Comment Babesia Smear See Comment Lyme Disease Screen Negative (Negative) Administered Medications Magnesium Sulfate/Dextrose (Magnesium Sulfate / D5w) 1 gm in 100 mls @ 50 mls/hr IV Q2H BELEM Stop: 08/04/23 21:44 Last Admin: 08/04/23 18:53 Dose: 50 mls/hr Documented By: Infusion: 08/04/23 18:53 Dose: Infused Documented By: Admin: 08/04/23 17:48 Dose: 50 mls/hr Documented By: MOLLY Discontinued Medications Diphenhydramine HCl (Diphenhydramine 50 Mg/Ml Vial) 50 mg IV NOW STA Stop: 08/04/23 13:03 Last Admin: 08/04/23 13:40 Dose: 50 mg Documented By: JUHI Furosemide (Furosemide Inj 20 Mg/2 Ml Vial) 20 mg IV ONE ONE Stop: 08/04/23 18:36 Last Admin: 08/04/23 18:40 Dose: 20 mg Documented By: MOLLY Sodium Chloride (Nss) 500 mls @ 999 mls/hr IV .Q31M STA Stop: 08/04/23 13:32 Last Infusion: 08/04/23 14:35 Dose: Infused Documented By: Admin: 08/04/23 13:37 Dose: 999 mls/hr Documented By: JUHI Magnesium Sulfate/Dextrose (Magnesium Sulfate / D5w) 1 gm in 100 mls @ 100 mls/hr IV NOW STA Stop: 08/04/23 17:44 Last Infusion: 08/04/23 17:49 Dose: Infused Documented By: Admin: 08/04/23 16:58 Dose: 100 mls/hr Documented By: MOLLY Ioversol (Optiray 320 150ml) 120 ml IV ONCE ONE Stop: 08/04/23 14:07 Last Admin: 08/04/23 14:06 Dose: 120 ml Documented By: BRYAN Methylprednisolone (Methylprednisolone 125 Mg/2 Ml Vial) 60 mg IV NOW STA Stop: 08/04/23 13:03 Last Admin: 08/04/23 13:37 Dose: 60 mg Documented By: JUHI Ondansetron HCl (Ondansetron Inj 2 Mg/Ml 2 Ml Vial) 4 mg IV NOW STA Stop: 08/04/23 13:03 Last Admin: 08/04/23 13:39 Dose: 4 mg Documented By: JUHI Potassium Chloride (Potassium Chloride Crtab 20 Meq Tabcr) 40 meq PO NOW STA Stop: 08/04/23 16:46 Last Admin: 08/04/23 16:58 Dose: 40 meq Documented By: MOLLY Potassium Chloride (Potassium Chloride 20 Meq/15 Ml Udc) 40 meq PO NOW STA Stop: 08/04/23 17:30 Last Admin: 08/04/23 17:47 Dose: 40 meq Documented By: MOLLY Imaging Data Radiologist's Impression: Abdomen/Pelvis CT 08/04/23 13:02 CT ANGIOGRAM OF THE CHEST; CT SCAN OF THE ABDOMEN AND PELVIS WITH IV CONTRAST CLINICAL HISTORY: Atypical chest pain. Dyspnea. Generalized abdominal pain. Weight gain. COMPARISON STUDY: No priors. TECHNIQUE: Following the IV administration of 120 of Optiray 320, CT angiogram of the chest is performed from the upper abdomen to the thoracic inlet utilizing the pulmonary embolus protocol. Images are reviewed in the axial, sagittal, coronal planes. 3-D MIPS images are created and assessed. Subsequently, CT scan of the abdomen and pelvis was performed from the lung bases to the proximal femora. Images are reviewed in the axial, sagittal, and coronal planes. IV contrast was administered without complication. A dose lowering technique was utilized adhering to the principles of ALARA. The examinations are degraded by streak artifact from the arms which could not be elevated above the chest or abdomen. CT DOSE: 2633.86 mGy.cm FINDINGS: CHEST: Thyroid: Mildly enlarged and heterogeneous. Thoracic aorta: The thoracic aorta is normal in caliber and demonstrates bovine variant arch anatomy. No dissection is seen. Pulmonary vasculature: The pulmonary trunk is mildly dilated measuring 3.3 cm in diameter. This suggests pulmonary artery hypertension. There are no filling defects identified in the main, lobar, or segmental pulmonary arteries to indicate pulmonary embolus. Heart: The heart is mildly enlarged noting a small pericardial effusion. Lungs and pleural spaces: There are small pleural effusions with dependent atelectasis. The trachea and central airways are clear. A 3 mm pleural-based nodule at the left lung base on image #84 is of doubtful significance. Mediastinum: There is no mediastinal lymphadenopathy. Ama: Clear. Axillae: There is no axillary lymphadenopathy. Bony thorax: No lytic or blastic lesions are identified. Soft tissues: Findings suggest bilateral mastectomy. There are bilateral breast implants in place. Surgical clips are seen in the left chest wall. ABDOMEN AND PELVIS: Liver: The contrast-enhanced liver is normal in size, contour, and attenuation. There is no intrahepatic biliary ductal dilatation. The hepatic veins and portal veins are patent. Gallbladder: Contracted. Spleen: Normal in size and attenuation. A 1 cm cystic focus is seen on image #63. Pancreas: Unremarkable. Adrenal glands: Unremarkable. Kidneys: The contrast enhanced kidneys are normal in size and without hydronephrosis. The kidneys enhance symmetrically. Abdominal vasculature: The abdominal aorta is normal in course and caliber. Bowel: There is fkhv-[id number]-[id number] quantity fecal retention. No bowel obstruction is seen. The appendix is well-visualized and normal. Peritoneum: There is no intraperitoneal free air or abdominal ascites. There is a fat-containing umbilical hernia. Lymphadenopathy: None. Pelvic viscera: The bladder wall appears circumferentially thickened. The uterus is normal as visualized noting an intrauterine device in place. There are bilateral ovarian follicles. A small volume of free fluid is seen in the cul-de-sac. Skeletal structures: No lytic or blastic lesions are seen. IMPRESSION: 1. There is no evidence of pulmonary embolus in the main, lobar, or segmental pulmonary arteries. 2. The heart is mildly enlarged and there is a small pericardial effusion 3. Small pleural effusions with dependent atelectasis. 4. Dilatation of the pulmonary trunk suggests pulmonary artery hypertension. 5. The bladder wall appears circumferentially thickened. Correlate with clinical findings and urinalysis. 6. Free fluid in the cul-de-sac is nonspecific and likely physiologic. 7. Additional findings as above. ACT 112: Negative or not required by law. Electronically signed by: Darryl Ignacio M.D. 08/04/2023 2:15 PM Chest CTA 08/04/23 13:02 CT ANGIOGRAM OF THE CHEST; CT SCAN OF THE ABDOMEN AND PELVIS WITH IV CONTRAST CLINICAL HISTORY: Atypical chest pain. Dyspnea. Generalized abdominal pain. Weight gain. COMPARISON STUDY: No priors. TECHNIQUE: Following the IV administration of 120 of Optiray 320, CT angiogram of the chest is performed from the upper abdomen to the thoracic inlet utilizing the pulmonary embolus protocol. Images are reviewed in the axial, sagittal, coronal planes. 3-D MIPS images are created and assessed. Subsequently, CT scan of the abdomen and pelvis was performed from the lung bases to the proximal femora. Images are reviewed in the axial, sagittal, and coronal planes. IV contrast was administered without complication. A dose lowering technique was utilized adhering to the principles of ALARA. The examinations are degraded by streak artifact from the arms which could not be elevated above the chest or abdomen. CT DOSE: 2633.86 mGy.cm FINDINGS: CHEST: Thyroid: Mildly enlarged and heterogeneous. Thoracic aorta: The thoracic aorta is normal in caliber and demonstrates bovine variant arch anatomy. No dissection is seen. Pulmonary vasculature: The pulmonary trunk is mildly dilated measuring 3.3 cm in diameter. This suggests pulmonary artery hypertension. There are no filling defects identified in the main, lobar, or segmental pulmonary arteries to indicate pulmonary embolus. Heart: The heart is mildly enlarged noting a small pericardial effusion. Lungs and pleural spaces: There are small pleural effusions with dependent atelectasis. The trachea and central airways are clear. A 3 mm pleural-based nodule at the left lung base on image #84 is of doubtful significance. Mediastinum: There is no mediastinal lymphadenopathy. Ama: Clear. Axillae: There is no axillary lymphadenopathy. Bony thorax: No lytic or blastic lesions are identified. Soft tissues: Findings suggest bilateral mastectomy. There are bilateral breast implants in place. Surgical clips are seen in the left chest wall. ABDOMEN AND PELVIS: Liver: The contrast-enhanced liver is normal in size, contour, and attenuation. There is no intrahepatic biliary ductal dilatation. The hepatic veins and portal veins are patent. Gallbladder: Contracted. Spleen: Normal in size and attenuation. A 1 cm cystic focus is seen on image #63. Pancreas: Unremarkable. Adrenal glands: Unremarkable. Kidneys: The contrast enhanced kidneys are normal in size and without hydronephrosis. The kidneys enhance symmetrically. Abdominal vasculature: The abdominal aorta is normal in course and caliber. Bowel: There is [id number]-[id number] quantity fecal retention. No bowel obstruction is seen. The appendix is well-visualized and normal. Peritoneum: There is no intraperitoneal free air or abdominal ascites. There is a fat-containing umbilical hernia. Lymphadenopathy: None. Pelvic viscera: The bladder wall appears circumferentially thickened. The uterus is normal as visualized noting an intrauterine device in place. There are bilateral ovarian follicles. A small volume of free fluid is seen in the cul-de-sac. Skeletal structures: No lytic or blastic lesions are seen. IMPRESSION: 1. There is no evidence of pulmonary embolus in the main, lobar, or segmental pulmonary arteries. 2. The heart is mildly enlarged and there is a small pericardial effusion 3. Small pleural effusions with dependent atelectasis. 4. Dilatation of the pulmonary trunk suggests pulmonary artery hypertension. 5. The bladder wall appears circumferentially thickened. Correlate with clinical findings and urinalysis. 6. Free fluid in the cul-de-sac is nonspecific and likely physiologic. 7. Additional findings as above. ACT 112: Negative or not required by law. Electronically signed by: Darryl Ignacio M.D. 08/04/2023 2:15 PM [address] Tissue Neck [address] 08/04/23 13:02 CT SCAN OF THE NECK WITH IV CONTRAST CLINICAL HISTORY: Neck pain and swelling COMPARISON STUDY: No priors. TECHNIQUE: Following the IV administration of 120 cc of Optiray 320, CT scan of the soft tissues of the neck was performed from the skull base to the upper chest. Images are reviewed in the axial, sagittal, and coronal planes. IV contrast was administered without complication. A dose lowering technique was utilized adhering to the principles of ALARA. FINDINGS: Pharynx: The pharyngeal soft tissues are normal as imaged. The pharyngeal airway is widely patent. There is no evidence of mass lesion. The vocal cords are symmetric. The parapharyngeal fat is well maintained. The prevertebral/retropharyngeal soft tissues are within normal limits. The epiglottis is normal. Lymphadenopathy: No cervical lymphadenopathy is seen Thyroid: Mildly enlarged and heterogeneous. Salivary glands: The parotid and submandibular glands are within normal limits. Brain parenchyma: The visualized brain parenchyma at the skull base is normal in appearance. Vascular structures: The carotid arteries and jugular veins are patent bilaterally. Skeletal structures: Imaged portions of the calvarium at the skull base are within normal limits. The cervical spine appears intact. Sinuses and mastoids: There is mild mucosal thickening in the right sphenoid sinus. The remaining visualized paranasal sinuses are clear. The mastoid air cells are well pneumatized. Lung apices: Pleural effusions are noted. The visualized upper lobe lung parenchyma is otherwise clear. IMPRESSION: 1 No acute abnormality is identified. 2. Pleural effusions are noted in the upper chest. ACT 112: Negative or not required by law. Electronically signed by: Darryl Ignacio M.D. 08/04/2023 2:22 PM Venous Doppler Study 08/04/23 13:02 ULTRASOUND BILATERAL LOWER EXTREMITY VENOUS CLINICAL HISTORY: Leg pain and swelling. Dyspnea. COMPARISON STUDY: No priors TECHNIQUE: Real-time, grayscale, and color Doppler sonography of the deep veins of the right and left lower extremity was performed from the inguinal crease to the calf. Compression and augmentation were utilized. FINDINGS: There is no sonographic evidence of deep venous thrombosis identified in the right or left lower extremity. The common femoral, superficial femoral, and popliteal veins are patent and normally compressible bilaterally. The greater saphenous vein and the profunda femoris vein at the junction with the common femoral vein are clear in both legs. The visualized calf veins are patent bilaterally. IMPRESSION: There is no sonographic evidence of deep venous thrombosis identified in the right or left lower extremity. ACT 112: Negative or not required by law. Electronically signed by: Darryl Ignacio M.D. 08/04/2023 4:00 PM Discharge Plan Visit Data Chief Complaint: Swelling/Edema to Extremity Stated Complaint: FACIAL/NECK SWELLING, SOB ED Provider: Pablo Rizo ED Midlevel Provider: Sujatha López Discharge Problem: Acute pericardial effusion, Volume overload, Dilation of pulmonary artery, Arthralgia, Lyme disease, SOB (shortness of breath) Patient Disposition: Admitted As Inpatient Condition: Good Discharge Instructions Interventions: ED Discharge Assessment Last Done: 08/04/23 19:53 Discharge Problem: Volume overload Qualifiers: Hypervolemia type: unspecified Qualified Code(s): E87.70 - Fluid overload, unspecified Arthralgia Qualifiers: Joint pain location: unspecified Qualified Code(s): M25.50 - Pain in unspecified joint
[2023-08-04 13:29] LABS: Pregnancy Test, Serum Negative (Negative)
[2023-08-04 13:30] LABS: Albumin Globulin Ratio 1.1 (0.9-2); Albumin Level 3.5 gm/dl (3.4-5.0); BUN Creatinine Ratio 13.8 (10-20); Bilirubin,Total 0.5 mg/dl (0.2-1.0); Calcium 9.1 mg/dl (8.6-10.3); Creatinine Clr Calc Pharmacy 87.6 ml/min; Est GFR (African American) 84.9 ml/min; Est GFR (Non-African American) 73.3 ml/min; Globulin 3.2 gm/dl (2.5-4.0); Magnesium 1.6 mg/dl (1.7-2.4); Potassium 3.2 mmol/L (3.5-5.1); Total Protein 6.7 gm/dl (6.0-8.3)
[2023-08-04 13:34] LABS: Appearance Urine Clear (Clear); Bilirubin Urine Negative (Negative); Blood Urine Negative (Negative); Color Urine Yellow; Glucose Urine UA Negative (Negative); Ketones Urine Trace (Negative); Leukocyte Esterase Urine Negative (Negative); Nitrite Urine Negative (Negative); Protein Urine Negative (Negative); Specific Gravity Urine 1.018 (1.000-1.030); Urobilinogen Urine Negative (Negative)
[2023-08-04 13:37] LABS: Troponin I High Sensitivity 3.8 pg/ml (0-14)
[2023-08-04] MEDS: SODIUM CHLORIDE 0.9% 500 ML IV STA (13:37)
[2023-08-04] MEDS: methylPREDNISolone 125 MG/2 ML VIAL IV STA (13:37)
[2023-08-04 13:38] LABS: Basophils # (auto) 0.07 K/uL (0.00-0.20); Basophils % (auto) 0.8 %; Eosinophils # (auto) 0.01 K/uL (0.00-0.50); Eosinophils % (auto) 0.1 %; Hematocrit (blood only) 34.2 % (37.0-47.0); Hemoglobin 11.6 g/dl (12.0-16.0); Immature Granulocytes # (auto) 0.08 K/uL (0.01-0.20); Immature Granulocytes % (auto) 0.9 %; Lymphocytes # (auto) 1.47 K/uL (1.20-3.40); Lymphocytes % (auto) 17.2 %; Mean Corpuscular Hemoglobin 31.8 pg (25.0-34.0); Mean Corpuscular Hgb Conc 33.9 g/dL (32.0-36.0); Mean Corpuscular Volume 93.7 fL (80.0-100.0); Mean Platelet Volume 11.4 fL (9.4-12.4); Monocytes # (auto) 0.91 K/uL (0.11-0.59); Monocytes % (auto) 10.6 %; Neutrophils # (auto) 6.02 K/uL (1.40-6.50); Neutrophils % (auto) 70.4 %; Platelet Count 237 K/uL (130-400); RDW Coefficient of Variation 12.6 % (11.5-14.5); RDW Standard Deviation 43.3 fL (36.4-46.3); Red Blood Count 3.65 M/uL (4.20-5.40); White Blood Count 8.56 K/ul (4.8-10.8)
[2023-08-04] MEDS: ONDANSETRON INJ 2 MG/ML 2 ML VIAL IV STA (13:39)
[2023-08-04] MEDS: diphenhydrAMINE 50 MG/ML VIAL IV STA (13:40)
[2023-08-04 13:45] LABS: Thyroid Stimulating Hormone 0.947 uIu/ml (0.300-4.500)
[2023-08-04 13:56] LABS: INR 1.1 (0.9-1.1); Partial Thromboplastin Ratio 0.9; Partial Thromboplastin Time 24 Seconds (21-31); Prothrombin Time 11.7 Seconds (9.0-12.0)
[2023-08-04] MEDS: OPTIRAY 320 150ml IV ONE (14:06)
--- NOTE | 2023-08-04 14:16 | CT Scan Report ---
CT ANGIOGRAM OF THE CHEST; CT SCAN OF THE ABDOMEN AND PELVIS WITH IV CONTRAST CLINICAL HISTORY: Atypical chest pain. Dyspnea. Generalized abdominal pain. Weight gain. COMPARISON STUDY: No priors. TECHNIQUE: Following the IV administration of 120 of Optiray 320, CT angiogram of the chest is perfor med from the upper abdomen to the thoracic inlet utilizing the pulmonary embolus protocol. Images are reviewed in the axial, sagittal, coronal planes. 3-D MIPS images are created and assessed. Subsequen tly, CT scan of the abdomen and pelvis was performed from the lung bases to the proximal femora. Imag es are reviewed in the axial, sagittal, and coronal planes. IV contrast was administered without comp lication. A dose lowering technique was utilized adhering to the principles of ALARA. The examination s are degraded by streak artifact from the arms which could not be elevated above the chest or abdome n. CT DOSE: 2633.86 mGy.cm FINDINGS: CHEST: Thyroid: Mildly enlarged and heterogeneous. Thoracic aorta: The thoracic aorta is normal in caliber and demonstrates bovine variant arch anatomy. No dissection is seen. Pulmonary vasculature: The pulmonary trunk is mildly dilated measuring 3.3 cm in diameter. This sugge sts pulmonary artery hypertension. There are no filling defects identified in the main, lobar, or seg mental pulmonary arteries to indicate pulmonary embolus. Heart: The heart is mildly enlarged noting a small pericardial effusion. Lungs and pleural spaces: There are small pleural effusions with dependent atelectasis. The trachea a nd central airways are clear. A 3 mm pleural-based nodule at the left lung base on image #84 is of do ubtful significance. Mediastinum: There is no mediastinal lymphadenopathy. Ama: Clear. Axillae: There is no axillary lymphadenopathy. Bony thorax: No lytic or blastic lesions are identified. Soft tissues: Findings suggest bilateral mastectomy. There are bilateral breast implants in place. [place] rgical clips are seen in the left chest wall. ABDOMEN AND PELVIS: Liver: The contrast-enhanced liver is normal in size, contour, and attenuation. There is no intrahepa tic biliary ductal dilatation. The hepatic veins and portal veins are patent. Gallbladder: Contracted. Spleen: Normal in size and attenuation. A 1 cm cystic focus is seen on image #63. Pancreas: Unremarkable. Adrenal glands: Unremarkable. Kidneys: The contrast enhanced kidneys are normal in size and without hydronephrosis. The kidneys enh ance symmetrically. Abdominal vasculature: The abdominal aorta is normal in course and caliber. Bowel: There is [id number] quantity fecal retention. No bowel obstruction is seen. The appendix is well-visualized and normal. Peritoneum: There is no intraperitoneal free air or abdominal ascites. There is a fat-containing umbi lical hernia. Lymphadenopathy: None. Pelvic viscera: The bladder wall appears circumferentially thickened. The uterus is normal as visuali zed noting an intrauterine device in place. There are bilateral ovarian follicles. A small volume of free fluid is seen in the cul-de-sac. Skeletal structures: No lytic or blastic lesions are seen. IMPRESSION: 1. There is no evidence of pulmonary embolus in the main, lobar, or segmental pulmonary arteries. 2. The heart is mildly enlarged and there is a small pericardial effusion 3. Small pleural effusions with dependent atelectasis. 4. Dilatation of the pulmonary trunk suggests pulmonary artery hypertension. 5. The bladder wall appears circumferentially thickened. Correlate with clinical findings and urinaly sis. 6. Free fluid in the cul-de-sac is nonspecific and likely physiologic. 7. Additional findings as above. ACT 112: Negative or not required by law. Electronically signed by: Darryl Ignacio M.D. 08/04/2023 2:15 PM
--- NOTE | 2023-08-04 14:24 | CT Scan Report ---
CT SCAN OF THE NECK WITH IV CONTRAST CLINICAL HISTORY: Neck pain and swelling COMPARISON STUDY: No priors. TECHNIQUE: Following the IV administration of 120 cc of Optiray 320, CT scan of the soft tissues of t he neck was performed from the skull base to the upper chest. Images are reviewed in the axial, sagit kat, and coronal planes. IV contrast was administered without complication. A dose lowering techniq ue was utilized adhering to the principles of ALARA. FINDINGS: Pharynx: The pharyngeal soft tissues are normal as imaged. The pharyngeal airway is widely patent. Th ere is no evidence of mass lesion. The vocal cords are symmetric. The parapharyngeal fat is well main tained. The prevertebral/retropharyngeal soft tissues are within normal limits. The epiglottis is nor mal. Lymphadenopathy: No cervical lymphadenopathy is seen Thyroid: Mildly enlarged and heterogeneous. Salivary glands: The parotid and submandibular glands are within normal limits. Brain parenchyma: The visualized brain parenchyma at the skull base is normal in appearance. Vascular structures: The carotid arteries and jugular veins are patent bilaterally. Skeletal structures: Imaged portions of the calvarium at the skull base are within normal limits. The cervical spine appears intact. Sinuses and mastoids: There is mild mucosal thickening in the right sphenoid sinus. The remaining vis ualized paranasal sinuses are clear. The mastoid air cells are well pneumatized. Lung apices: Pleural effusions are noted. The visualized upper lobe lung parenchyma is otherwise paco r. IMPRESSION: 1 No acute abnormality is identified. 2. Pleural effusions are noted in the upper chest. ACT 112: Negative or not required by law. Electronically signed by: Darryl Ignacio M.D. 08/04/2023 2:22 PM
--- NOTE | 2023-08-04 16:02 | Ultrasound Report ---
ULTRASOUND BILATERAL LOWER EXTREMITY VENOUS CLINICAL HISTORY: Leg pain and swelling. Dyspnea. COMPARISON STUDY: No priors TECHNIQUE: Real-time, grayscale, and color Doppler sonography of the deep veins of the right and left lower extremity was performed from the inguinal crease to the calf. Compression and augmentation wer e utilized. FINDINGS: There is no sonographic evidence of deep venous thrombosis identified in the right or left lower extremity. The common femoral, superficial femoral, and popliteal veins are patent and normally compressible bilaterally. The greater saphenous vein and the profunda femoris vein at the junction w ith the common femoral vein are clear in both legs. The visualized calf veins are patent bilaterally. IMPRESSION: There is no sonographic evidence of deep venous thrombosis identified in the right or lef t lower extremity. ACT 112: Negative or not required by law. Electronically signed by: Darryl Ignacio M.D. 08/04/2023 4:00 PM
[2023-08-04] MEDS: POTASSIUM CHLORIDE CRTAB 20 MEQ TABCR PO STA (16:58)
[2023-08-04] MEDS: MAGNESIUM SULFATE / D5W 1 GM/100 ML BAG IV STA (16:58)
--- NOTE | 2023-08-04 17:17 | History & Physical Report ---
Date of Service August 04, 2023 Assessment & Plan (1) Volume overload: (2) Dilation of pulmonary artery: (3) Anemia: (4) Arthralgia: (5) Fatigue: (6) Lyme disease: Plan This is a 47 year old F who has a significant PMH of asthma, GERD, hx of prophylactic bilateral mastectomy who presents to ED 2/2 increasing shortness of breath and swelling x 2.5weeks. Pt reports constitutional sx of fatigue, myalgia, arthralgia over last 2.5 weeks. Over last week has noticed increased swelling of hands, face and lower extremities, notable 15-20lb weight gain. Dx with equivocal lyme test out in [place], but not formal western blot. She was started on doxycycline for this. She was also recently started on steroid taper for arthralgias Strong FH of autoimmune with lupus and RA. --Chest CTA: There is no evidence of pulmonary embolus in the main, lobar, or segmental pulmonary arteries. 2. The heart is mildly enlarged and there is a small pericardial effusion 3. Small pleural effusions with dependent atelectasis.4. Dilatation of the pulmonary trunk suggests pulmonary artery hy pertension. Volume overload Dilatation of pulmonary artery on CT scan Weight gain admit to tele pt has echo in 2022 w/o evidence of HTN, this appears consistent with sx pt has been experiencing over last 2.5 weeks presenting as if in right sided heart failure ? if 2/2 pulmonary HTN of uncertain etiology obtain echocardiogram consult cardiology cycle trops repeat ecg 2/2 t wave inversions, 1st @ 1242 with inversions V3-V5, repeat ecg at 1830 with improvement in this but still present - she is not complaining of chest pain, trop unremarkable autoimmune work up with COLLEEN 12 panel, will obtain lyme titer - which has since resulted as negative re- eval in a.m. to determine need for additional diuresis Hypokalemia hypomagnesemia replace Anemia obtain anemia panel in am. Lyme Disease Recent Lyme Diagnosis in [place] place on Empiric IV rocephin, doxy for now until etiology of sx more delineated Asthma prn albuterol DVT ppx: SQ lovenox Dispo: tele FULL CODE PCP: Goldie Pt was seen and examined in collaboration with Dr. Carranza, please see addendum A total of 66 minutes was spent coordinating, documenting, and providing care for this patient excluding time spent in the performance of separately billed services. This included personally viewing all current laboratories and imaging studies, medication reconciliation, outpatient chart review, and discussion with specialists. History of Present Illness Chief Complaint: Increasing shortness of breath and swelling x 2.5 weeks. Primary Care Provider: Song Amezcua MD This is a 47 year old F who has a significant PMH of asthma, GERD, hx of prophylactic bilateral mastectomy who presents to ED 2/2 increasing shortness of breath and swelling x 2.5 weeks. Her sx all seemed to originate starting on July 15 when she went out for a walk. She was trying to exercise and get steps in. Whenever she was almost done she got terrible low back pain. When she got home she was getting hot/cold flashes for 3 days. She then went to the ER in [place] because she was now having joint paint and muscle pain all over along with fatigue. She was encouraged to be re evaluated if she didn't feel any better. She initially thought she was feeling better, but symptoms got worse to she represented back to the ER in [place] due to having swelling in face,foot and ankles. She was seen in [place] ED due to being in the area for work. She tried to sleep reclined but her sx worsened. She developed more swelling. In [place] ED she had imaging done that showed arthritis in c5-c6. She also was tested for lyme. She was finally diagnosed with lyme disease on saturday and started on oral doxycycline. She had an ESR/CRP done and her ESR was normal and CRP mildly elevated. Her BNP at that time was also unremarkable. She was initially started on prednisone until the lymes resulted. When she recently went for PCP follow up she was short of breath going into the appointment. She noted at the appt she had went from 190lb to 209lbs. Since taking the steroids and doxycycline she still feels terrible. Up until July 15 she had been in her normal state of health without any significant cardiac disease history. She has a FH of autoimmune with Lupus and RA. She has a dog, but does not recall a tick or insect bite. In ED patient remained hemodynamically stable. Her lab abnormalities consist of H&H 11.6 and 34.2, potassium 3.2, mag 1.6, AST 54, BNP 220 and urinalysis with trace ketones. Her Anaplasma BC smear was negative. Pertinent imaging findings include mildly enlarged heart with small pericardial effusion, small pleural effusions with dependent atelectasis, dilatation of the pulmonary trunk suggesting pulmonary hypertension. Allergies Allergy/AdvReac Type Severity Reaction Status Date / Time azithromycin Allergy Intermediate tingly Verified 08/04/23 16:17 [From Zithromax Z-Shane] mouth and tongue Gadolinium-Containing Allergy Intermediate tingling Verified 08/04/23 16:17 Contrast Medi mouth and tongue Penicillins Allergy Intermediate tingly Verified 08/04/23 16:17 mouth and tongue contrast dye Allergy Intermediate tingling Uncoded 08/04/23 16:17 mouth and tongue sutures AdvReac Severe polysorb Uncoded 08/04/23 16:17 and monocryl - wound dehiscencse. Home Medications Medication Instructions Recorded Confirmed Type albuterol sulfate 90 mcg/actuation 1 inh inhalation UD PRN asthma 01/11/23 08/04/23 History aerosol inhaler fluticasone 250 mcg-salmeterol 50 1 ea inhalation BID 01/11/23 08/04/23 History mcg/dose blistr powdr for inhalation (Advair Diskus) levonorgestrel 21 mcg/24 hr (up to 1 device intrauterine CONTINOUS 01/11/23 08/04/23 History 8 years) 52 mg intrauterine device (Mirena) montelukast 10 mg tablet 10 mg PO HS 01/11/23 08/04/23 History famotidine 10 mg tablet 10 mg PO UD PRN gerd 03/01/23 08/04/23 History omeprazole magnesium 20 mg 20 mg PO DIRECTED PRN gerd 03/01/23 08/04/23 History tablet,delayed release (Prilosec OTC) albuterol sulfate 2.5 mg/3 mL 2.5 mg inhalation Q4H PRN Wheezing 08/04/23 08/04/23 History (0.083 %) solution for nebulization cetirizine 10 mg tablet (Zyrtec) 10 mg PO DAILY 08/04/23 08/04/23 History doxycycline hyclate 100 mg tablet 100 mg PO BID 08/04/23 08/04/23 History fluticasone propionate 50 2 spray intranasal DAILY 08/04/23 08/04/23 History mcg/actuation nasal spray,suspension prednisone 10 mg tablet 0 mg PO DIRECTED 08/04/23 08/04/23 History Past Med/Surg History Problem List (Updated 08/04/23 @ 18:39 by Rin Abbasi PA-C) Lyme disease Fatigue Arthralgia Anemia Dilation of pulmonary artery Volume overload Superficial thrombophlebitis catheter-associated in R antecub managed with eliquis for short term Deficiency of von Willebrand factor Patient was [id number] on her testing, but has h/o postop bleeding and dehiscence that was corrected with DDAVP use during other surgeries. Asthma Abnormal uterine bleeding (AUB) Hot flashes Fibroids Endometriosis determined by laparoscopy Medical History Family history of reaction to anesthesia father - nausea. Nausea after anesthesia Blood disorder Pt has hx of bleeding issues after surgery and wound dehiscence / testing done and inconclusive. GERD (gastroesophageal reflux disease) IBS (irritable bowel syndrome) History of blood clots s/p surgery , near iv placement area - right arm. 3 yr ago. Blood thinner and since discontinued. Asthma well controlled/last use rescue inhaler last week /weather changes percautionary /no symptoms. Surgical History History of D&C History of endoscopy History of colonoscopy History of colposcopy maybe around age 20-25. She's not 100% sure in that range when it occurred. S/P section H/O mastectomy 2019. Prophy for fam hx of breast cancer and many personal breast surgeries with implants failing in 2021 that were subsequently fixed Dec 2021; found pre-cancer at time of mastectomy. Family History Grandmother (Maternal) Breast cancer great grandmother Aunt Breast cancer maternal paternal Colorectal cancer paternal Father Prostate cancer Brother Prostate cancer Grandfather (Maternal) Prostate cancer Grandfather (Paternal) Prostate cancer Uncle Prostate cancer Denies family history of Ovarian cancer Social History Smoking Status: Former smoker Tobacco Type: Cigarettes Do You Dip or Chew Tobacco: No; Hx Alcohol Use: No Hx Substance Use: No Preferred Language: Salvadorean Communication Ability: Effective Diver'S Tender Required: No Beliefs That Will Affect Care: None Current Living Situation: Spouse and Family Feels Safe at Home: Yes Assistive Devices: Contacts and Glasses Review of Systems Review of Systems: All systems reviewed & are unremarkable except as noted in HPI & below Physical Exam Physical Exam: please refer to Dr. Carranza addendum for physical exam findings. Results & Data Results & Data Vital Signs (Past 12 Hours) Vital Signs Temp Pulse Pulse Resp BP BP Pulse Ox 08/04/23 16:07 75 20 149/89 H 97 08/04/23 13:24 78 08/04/23 12:32 36.6 C 102 H 18 155/85 H 97 O2 Del Method 08/04/23 16:07 Room Air 08/04/23 13:24 08/04/23 12:32 Diagnostic Findings Abdomen/Pelvis CT 08/04/23 13:02 CT ANGIOGRAM OF THE CHEST; CT SCAN OF THE ABDOMEN AND PELVIS WITH IV CONTRAST CLINICAL HISTORY: Atypical chest pain. Dyspnea. Generalized abdominal pain. Weight gain. COMPARISON STUDY: No priors. TECHNIQUE: Following the IV administration of 120 of Optiray 320, CT angiogram of the chest is performed from the upper abdomen to the thoracic inlet utilizing the pulmonary embolus protocol. Images are reviewed in the axial, sagittal, coronal planes. 3-D MIPS images are created and assessed. Subsequently, CT scan of the abdomen and pelvis was performed from the lung bases to the proximal femora. Images are reviewed in the axial, sagittal, and coronal planes. IV contrast was administered without complication. A dose lowering technique was utilized adhering to the principles of ALARA. The examinations are degraded by streak artifact from the arms which could not be elevated above the chest or abdomen. CT DOSE: 2633.86 mGy.cm FINDINGS: CHEST: Thyroid: Mildly enlarged and heterogeneous. Thoracic aorta: The thoracic aorta is normal in caliber and demonstrates bovine variant arch anatomy. No dissection is seen. Pulmonary vasculature: The pulmonary trunk is mildly dilated measuring 3.3 cm in diameter. This suggests pulmonary artery hypertension. There are no filling defects identified in the main, lobar, or segmental pulmonary arteries to indicate pulmonary embolus. Heart: The heart is mildly enlarged noting a small pericardial effusion. Lungs and pleural spaces: There are small pleural effusions with dependent atelectasis. The trachea and central airways are clear. A 3 mm pleural-based nodule at the left lung base on image #84 is of doubtful significance. Mediastinum: There is no mediastinal lymphadenopathy. Ama: Clear. Axillae: There is no axillary lymphadenopathy. Bony thorax: No lytic or blastic lesions are identified. Soft tissues: Findings suggest bilateral mastectomy. There are bilateral breast implants in place. Surgical clips are seen in the left chest wall. ABDOMEN AND PELVIS: Liver: The contrast-enhanced liver is normal in size, contour, and attenuation. There is no intrahepatic biliary ductal dilatation. The hepatic veins and portal veins are patent. Gallbladder: Contracted. Spleen: Normal in size and attenuation. A 1 cm cystic focus is seen on image #63. Pancreas: Unremarkable. Adrenal glands: Unremarkable. Kidneys: The contrast enhanced kidneys are normal in size and without hydronephrosis. The kidneys enhance symmetrically. Abdominal vasculature: The abdominal aorta is normal in course and caliber. Bowel: There is ejnm-gg-hdlzokpr quantity fecal retention. No bowel obstruction is seen. The appendix is well-visualized and normal. Peritoneum: There is no intraperitoneal free air or abdominal ascites. There is a fat-containing umbilical hernia. Lymphadenopathy: None. Pelvic viscera: The bladder wall appears circumferentially thickened. The uterus is normal as visualized noting an intrauterine device in place. There are bilateral ovarian follicles. A small volume of free fluid is seen in the cul-de-sac. Skeletal structures: No lytic or blastic lesions are seen. IMPRESSION: 1. There is no evidence of pulmonary embolus in the main, lobar, or segmental pulmonary arteries. 2. The heart is mildly enlarged and there is a small pericardial effusion 3. Small pleural effusions with dependent atelectasis. 4. Dilatation of the pulmonary trunk suggests pulmonary artery hypertension. 5. The bladder wall appears circumferentially thickened. Correlate with clinical findings and urinalysis. 6. Free fluid in the cul-de-sac is nonspecific and likely physiologic. 7. Additional findings as above. ACT 112: Negative or not required by law. Electronically signed by: Darryl Ignacio M.D. 08/04/2023 2:15 PM Chest CTA 08/04/23 13:02 CT ANGIOGRAM OF THE CHEST; CT SCAN OF THE ABDOMEN AND PELVIS WITH IV CONTRAST CLINICAL HISTORY: Atypical chest pain. Dyspnea. Generalized abdominal pain. Weight gain. COMPARISON STUDY: No priors. TECHNIQUE: Following the IV administration of 120 of Optiray 320, CT angiogram of the chest is performed from the upper abdomen to the thoracic inlet utilizing the pulmonary embolus protocol. Images are reviewed in the axial, sagittal, coronal planes. 3-D MIPS images are created and assessed. Subsequently, CT scan of the abdomen and pelvis was performed from the lung bases to the proximal femora. Images are reviewed in the axial, sagittal, and coronal planes. IV contrast was administered without complication. A dose lowering technique was utilized adhering to the principles of ALARA. The examinations are degraded by streak artifact from the arms which could not be elevated above the chest or abdomen. CT DOSE: 2633.86 mGy.cm FINDINGS: CHEST: Thyroid: Mildly enlarged and heterogeneous. Thoracic aorta: The thoracic aorta is normal in caliber and demonstrates bovine variant arch anatomy. No dissection is seen. Pulmonary vasculature: The pulmonary trunk is mildly dilated measuring 3.3 cm in diameter. This suggests pulmonary artery hypertension. There are no filling defects identified in the main, lobar, or segmental pulmonary arteries to indicate pulmonary embolus. Heart: The heart is mildly enlarged noting a small pericardial effusion. Lungs and pleural spaces: There are small pleural effusions with dependent atelectasis. The trachea and central airways are clear. A 3 mm pleural-based nod ule at the left lung base on image #84 is of doubtful significance. Mediastinum: There is no mediastinal lymphadenopathy. Ama: Clear. Axillae: There is no axillary lymphadenopathy. Bony thorax: No lytic or blastic lesions are identified. Soft tissues: Findings suggest bilateral mastectomy. There are bilateral breast implants in place. Surgical clips are seen in the left chest wall. ABDOMEN AND PELVIS: Liver: The contrast-enhanced liver is normal in size, contour, and attenuation. There is no intrahepatic biliary ductal dilatation. The hepatic veins and portal veins are patent. Gallbladder: Contracted. Spleen: Normal in size and attenuation. A 1 cm cystic focus is seen on image #63. Pancreas: Unremarkable. Adrenal glands: Unremarkable. Kidneys: The contrast enhanced kidneys are normal in size and without hydronephrosis. The kidneys enhance symmetrically. Abdominal vasculature: The abdominal aorta is normal in course and caliber. Bowel: There is bfjc-um-gutvcfaa quantity fecal retention. No bowel obstruction is seen. The appendix is well-visualized and normal. Peritoneum: There is no intraperitoneal free air or abdominal ascites. There is a fat-containing umbilical hernia. Lymphadenopathy: None. Pelvic viscera: The bladder wall appears circumferentially thickened. The uterus is normal as visualized noting an intrauterine device in place. There are bilateral ovarian follicles. A small volume of free fluid is seen in the cul-de-sac. Skeletal structures: No lytic or blastic lesions are seen. IMPRESSION: 1. There is no evidence of pulmonary embolus in the main, lobar, or segmental pulmonary arteries. 2. The heart is mildly enlarged and there is a small pericardial effusion 3. Small pleural effusions with dependent atelectasis. 4. Dilatation of the pulmonary trunk suggests pulmonary artery hypertension. 5. The bladder wall appears circumferentially thickened. Correlate with clinical findings and urinalysis. 6. Free fluid in the cul-de-sac is nonspecific and likely physiologic. 7. Additional findings as above. ACT 112: Negative or not required by law. Electronically signed by: Darryl Ignacio M.D. 08/04/2023 2:[address] 08/04/23 13:02 CT SCAN OF THE NECK WITH IV CONTRAST CLINICAL HISTORY: Neck pain and swelling COMPARISON STUDY: No priors. TECHNIQUE: Following the IV administration of 120 cc of Optiray 320, CT scan of the soft tissues of the neck was performed from the skull base to the upper chest. Images are reviewed in the axial, sagittal, and coronal planes. IV contrast was administered without complication. A dose lowering technique was utilized adhering to the principles of ALARA. FINDINGS: Pharynx: The pharyngeal soft tissues are normal as imaged. The pharyngeal airway is widely patent. There is no evidence of mass lesion. The vocal cords are symmetric. The parapharyngeal fat is well maintained. The prevertebral/retropharyngeal soft tissues are within normal limits. The epiglottis is normal. Lymphadenopathy: No cervical lymphadenopathy is seen Thyroid: Mildly enlarged and heterogeneous. Salivary glands: The parotid and submandibular glands are within normal limits. Brain parenchyma: The visualized brain parenchyma at the skull base is normal in appearance. Vascular structures: The carotid arteries and jugular veins are patent bilaterally. Skeletal structures: Imaged portions of the calvarium at the skull base are within normal limits. The cervical spine appears intact. Sinuses and mastoids: There is mild mucosal thickening in the right sphenoid sinus. The remaining visualized paranasal sinuses are clear. The mastoid air cells are well pneumatized. Lung apices: Pleural effusions are noted. The visualized upper lobe lung parenchyma is otherwise clear. IMPRESSION: 1 No acute abnormality is identified. 2. Pleural effusions are noted in the upper chest. ACT 112: Negative or not required by law. Electronically signed by: Darryl Ignacio M.D. 08/04/2023 2:22 PM Venous Doppler Study 08/04/23 13:02 ULTRASOUND BILATERAL LOWER EXTREMITY VENOUS CLINICAL HISTORY: Leg pain and swelling. Dyspnea. COMPARISON STUDY: No priors TECHNIQUE: Real-time, grayscale, and color Doppler sonography of the deep veins of the right and left lower extremity was performed from the inguinal crease to the calf. Compression and augmentation were utilized. FINDINGS: There is no sonographic evidence of deep venous thrombosis identified in the right or left lower extremity. The common femoral, superficial femoral, and popliteal veins are patent and normally compressible bilaterally. The greater saphenous vein and the profunda femoris vein at the junction with the common femoral vein are clear in both legs. The visualized calf veins are patent bilaterally. IMPRESSION: There is no sonographic evidence of deep venous thrombosis identified in the right or left lower extremity. ACT 112: Negative or not required by law. Electronically signed by: Darryl Ignacio M.D. 08/04/2023 4:00 PM Medications Administered Medication List Magnesium Sulfate/Dextrose (Magnesium Sulfate / D5w) 1 gm in 100 mls @ 100 mls/hr IV NOW STA Stop: 08/04/23 17:44 Last Admin: 08/04/23 16:58 Dose: 100 mls/hr Documented By: JW Discontinued Medications Diphenhydramine HCl (Diphenhydramine 50 Mg/Ml Vial) 50 mg IV NOW STA Stop: 08/04/23 13:03 Last Admin: 08/04/23 13:40 Dose: 50 mg Documented By: JUHI Sodium Chloride (Nss) 500 mls @ 999 mls/hr IV .Q31M STA Stop: 08/04/23 13:32 Last Infusion: 08/04/23 14:35 Dose: Infused Documented By: Admin: 08/04/23 13:37 Dose: 999 mls/hr Documented By: JUHI Ioversol (Optiray 320 150ml) 120 ml IV ONCE ONE Stop: 08/04/23 14:07 Last Admin: 06/09/24 14:06 Dose: 120 ml Documented By: BRYAN Methylprednisolone (Methylprednisolone 125 Mg/2 Ml Vial) 60 mg IV NOW STA Stop: 08/04/23 13:03 Last Admin: 08/04/23 13:37 Dose: 60 mg Documented By: JUHI Ondansetron HCl (Ondansetron Inj 2 Mg/Ml 2 Ml Vial) 4 mg IV NOW STA Stop: 08/04/23 13:03 Last Admin: 08/04/23 13:39 Dose: 4 mg Documented By: JUHI Potassium Chloride (Potassium Chloride Crtab 20 Meq Tabcr) 40 meq PO NOW STA Stop: 08/04/23 16:46 Last Admin: 08/04/23 16:58 Dose: 40 meq Documented By: MOLLY ECG Additional Comments: I have independently reviewed and interpreted patient's admitting EKG which revealed: NSR 88 bpm, T wave inversions v3-v6 COVID-19 Results Results COVID-19 Adm Lab Results: RBC 3.65 M/uL (4.20-5.40) L 08/04/23 WBC 8.56 K/ul (4.8-10.8) 08/04/23 Hgb 11.6 g/dl (12.0-16.0) L 08/04/23 Hct 34.2 % (37.0-47.0) L 08/04/23 Plt Count 237 K/uL (130-400) 08/04/23 Neutrophils (%) (Auto) 70.4 % 08/04/23 Lymphocytes (%) (Auto) 17.2 % 08/04/23 Monocytes # (Auto) 0.91 K/uL (0.11-0.59) H 08/04/23 Eosinophils # (Auto) 0.01 K/uL (0.00-0.50) 08/04/23 Immature Granulocyte % (Auto) 0.9 % 08/04/23 Neutrophils # (Auto) 6.02 K/uL (1.40-6.50) 08/04/23 Lymphocytes # (Auto) 1.47 K/uL (1.20-3.40) 08/04/23 Monocytes # (Auto) 0.91 K/uL (0.11-0.59) H 08/04/23 Eosinophils # (Auto) 0.01 K/uL (0.00-0.50) 08/04/23 Basophils # (Auto) 0.07 K/uL (0.00-0.20) 08/04/23 Immature Granulocyte # (Auto) 0.08 K/uL (0.01-0.20) 4 Na 139 mmol/L (136-145) 08/04/23 K 3.2 mmol/L (3.5-5.1) L 08/04/23 Cl 103 mmol/L (98-107) 08/04/23 CO2 31 mmol/L (21-32) 08/04/23 Anion Gap 5 (3-11) 08/04/23 BUN 13 mg/dl (6-23) 08/04/23 Creatinine 0.94 mg/dl (0.6-1.2) 08/04/23 BUN/Creatinine Ratio 13.8 (10-20) 08/04/23 Glucose Level 84 mg/dl (70-99(Fasting)) 08/04/23 Ca 9.1 mg/dl (8.6-10.3) 08/04/23 Total Bilirubin 0.5 mg/dl (0.2-1.0) 08/04/23 AST/SGOT 21 U/L (13-39) 08/04/23 ALT/SGPT 54 U/L (7-52) H 08/04/23 Alkaline Phosphatase 46 U/L (34-104) 08/04/23 Total Protein 6.7 gm/dl (6.0-8.3) 08/04/23 Albumin 3.5 gm/dl (3.4-5.0) 08/04/23 Globulin 3.2 gm/dl (2.5-4.0) 08/04/23 Albumin/Globulin Ratio 1.1 (0.9-2) 08/04/23 Procalcitonin < 0.02 ng/ml (0-0.5) 08/04/23 PTT 24 Seconds (21-31) 08/04/23 INR 1.1 (0.9-1.1) 08/04/23 Code Status & VTE Plan Code Status full code Supervising Physician Co-Signing Physician Notes I have seen and discussed the case with the collaborating advanced practitioner. I agree with the above H&P. I have reviewed and confirmed the patients medical history, the findings on physical examination, and the patients diagnosis and treatment plan with Elroy MAHER and agree with the information documented. Ms. Simmons is a 47 year old woman with history of asthma, GERD, hx of prophylactic bilateral mastectomy who is admitted for evaluation of SOB and swelling, with concerns for heart failure. Patient reports symptoms of polyarthritis and back pain on 07/25, which progressed to subjective swelling in face and lower extremities. Initially, thought to be viral, patient was placed on a steroid taper. Symptoms persisted and patient underwent a lyme screen which was positive, prompting initiation of doxycycline. Patient started doxycycline on 08/01. Lab result reviewed and does not appear to be a western blot confirmatory test. Patient with family history of lupus and RA in her family. She denies any rash. She denies any outdoor activities. She cannot recall exposure to tick or insects. She denies fevers, endorses chills. Reports weight baseline 190, now up to 209lbs GENERAL APPEARANCE: AxOx4, mildly anxious, well spoken with detailed timeline HEENT: NC, AT. MMM. EOMI, clear conjunctiva, oropharynx clear. mild swelling of jowls, no clear LAD NECK: Supple without lymphadenopathy. No stiffness or restricted ROM. HEART: Normal rate and regular rhythm, normal S1/S1, no m/r/g LUNGS: CTAB, moving air well, no appreciable crackles ABDOMEN: Soft, mildly distended/full with good bowel sounds heard. no fluid shift BACK: No CVAT, no obvious deformity. EXTREMITIES: Without cyanosis, clubbing, trace edema in BLE NEUROLOGICAL: Grossly nonfocal. Alert and oriented, moving all 4 extremities. CN not formally tested but appear grossly intact. Observed to ambulate with normal gait. Skin: Warm and dry without any rash. #SOB #Volume overload, concern for heart failure #c/f Pulmonary Hypertension (pHTN) on imaging Patient without history of pulmonary hypertension or cardiac issue CT imaging with dilatation of pulmonary trunk 3.3 cm, pleural effusions noted, mild cardiomegaly and small pericardial effusion Assess for type 1/5 pthn with COLLEEN panel given strong family history, age/female Assess for type II with ECHO, consider RHC contingent on course Low suspicion for chronic hypoxemia, appears to be oxygenation well, history of asthma but nonsmoker, no other parenchymal disease noted Low suspicion for CTEPH, no emboli noted, dopplers negative, no history of blood d/o Low suspicion for sarcoid, no LAD/mediastinal changes, stable ca TSH WNL; BNP 220 -IV lasix 20mg x 1 Replace lytes K>4, Mag > 2 ECHO Cards consult COLLEEN panel in am Follow up lyme/tickbourne serologies CTX/Doxy in interim Continue steroid taper, IV methylpred q am #Asthma hypersensitivity to NSAIDS, reports near exacerbation last week with Toradol, steroid taper for muscle aches/pain as well as asthma No wheezing on exam albuterol prn steroid taper to continue contingent on course rest of plan as above I spent a total of 45 minutes coordinating, documenting, and providing care for this patient excluding time spent in the performance of separately billed services. All of the aforementioned completed outside of collaborating with the assigned advanced practitioner for a full treatment plan. I have reviewed the advanced practitioner's documentation, and I agree with, and take responsibility for the plan of care
[2023-08-04] MEDS: POTASSIUM CHLORIDE 20 MEQ/15 ML UDC PO STA (17:47)
[2023-08-04] MEDS: MAGNESIUM SULFATE / D5W 1 GM/100 ML BAG IV SCH (17:48)
[2023-08-04] MEDS: FUROSEMIDE INJ 20 MG/2 ML VIAL IV ONE (18:40)
[2023-08-04 19:22] LABS: Troponin I High Sensitivity 3.9 pg/ml (0-14)
[2023-08-04] MEDS ORDERED: ALBUTEROL HFA 8 GM INHALER INH PRN (19:52)
[2023-08-04] MEDS ORDERED: MAGNESIUM HYDROXIDE SUSP 30 ML UDC PO PRN (19:52)
[2023-08-04] MEDS ORDERED: ALUMINUM/MAGNESIUM SUSP 30 ML UDC PO PRN (19:52)
[2023-08-04] MEDS ORDERED: ONDANSETRON INJ 2 MG/ML 2 ML VIAL IV PRN (19:52)
[2023-08-04] MEDS ORDERED: POLYETHYLENE (MIRALAX) 17 GM PACK PO PRN (19:52)
[2023-08-04] MEDS: ENOXAPARIN INJ 40 MG/0.4 ML SYR SQ SCH (20:39)
[2023-08-04] MEDS: MONTELUKAST SODIUM 10 MG TABLET PO SCH (20:40)
[2023-08-04] MEDS: cefTRIAXone SODIUM 2,000 MG/50 ML BAG IV SCH (20:42)
[2023-08-04] MEDS: DOXYCYCLINE HYCLATE 100 MG in DEXTROSE 5% MINI-B 100 ML IV SCH (21:31)
[2023-08-04] MEDS: ACETAMINOPHEN 325 MG TAB PO PRN (22:32)
[2023-08-04] MEDS: FAMOTIDINE 10 MG TABLET PO PRN (22:45)
[2023-08-05 03:07] LABS: C Reactive Protein < 0.50 mg/dl (0-0.5)
[2023-08-05 06:56] LABS: Basophils # (auto) 0.03 K/uL (0.00-0.20); Basophils % (auto) 0.4 %; Hematocrit (blood only) 34.5 % (37.0-47.0); Hemoglobin 11.8 g/dl (12.0-16.0); Immature Granulocytes # (auto) 0.06 K/uL (0.01-0.20); Immature Granulocytes % (auto) 0.7 %; Lymphocytes # (auto) 1.32 K/uL (1.20-3.40); Lymphocytes % (auto) 16.2 %; Mean Corpuscular Hemoglobin 31.8 pg (25.0-34.0); Mean Corpuscular Hgb Conc 34.2 g/dL (32.0-36.0); Mean Platelet Volume 11.2 fL (9.4-12.4); Monocytes # (auto) 0.96 K/uL (0.11-0.59); Monocytes % (auto) 11.8 %; Neutrophils # (auto) 5.77 K/uL (1.40-6.50); Neutrophils % (auto) 70.9 %; Platelet Count 257 K/uL (130-400); RDW Coefficient of Variation 12.6 % (11.5-14.5); RDW Standard Deviation 42.4 fL (36.4-46.3); Red Blood Count 3.71 M/uL (4.20-5.40); White Blood Count 8.14 K/ul (4.8-10.8)
[2023-08-05 07:26] LABS: Albumin Level 3.3 gm/dl (3.4-5.0); BUN Creatinine Ratio 14.7 (10-20); Bilirubin,Total 0.5 mg/dl (0.2-1.0); Chol HDL Ratio 3.5 (0-5); Creatinine Clr Calc Pharmacy 85.4 ml/min; Est GFR (African American) 83.8 ml/min; Est GFR (Non-African American) 72.3 ml/min; Globulin 3.3 gm/dl (2.5-4.0); Magnesium 2.2 mg/dl (1.7-2.4); Potassium 3.8 mmol/L (3.5-5.1); Total Protein 6.6 gm/dl (6.0-8.3)
[2023-08-05 07:32] LABS: Troponin I High Sensitivity 4.2 pg/ml (0-14)
[2023-08-05 07:44] LABS: Ferritin 138.2 ng/ml (8-388)
[2023-08-05] MEDS: PANTOprazole 40 MG TAB PO SCH (08:12)
[2023-08-05] MEDS: methylPREDNISolone 40 MG in SYRINGE 0 ML IV ONE (08:13)
--- NOTE | 2023-08-05 08:13 | Cardiology Consultation ---
Date of Consultation August 05, 2023 Assessment & Plan (1) Pleuropericarditis: (2) Acute pericardial effusion: (3) Volume overload: (4) SOB (shortness of breath): (5) Lyme disease: (6) Fatigue: (7) Arthralgia: (8) Asthma: Plan Assessment: 47 year old female presents with 2 week progression of acute shortness of breath, abdominal and lower extremities swelling with unclear etiology. Initially thought contributory to new Lyme diagnosis; however repeat testing now not suggestive of lymes. Cardiology requested to see patient due to pleural effusions and concern for pericardial effusion. Plan: 1. Acute pericardial effusion 2. Volume overload 3. Shortness of breath -Multifactorial. Initial concern for lyme; however, repeat testing is suggesting that is not the case. Elevated sed rate and strong family history of auto-immune disease. -Patient appears near euvolemic by exam, but does endorse chest pressure when attempting to lay flat or with exertion. Will discuss with attending consideration for additional Lasix dose. -Echocardiogram formal read pending. Preliminary shows a hemodynamically insignificant pericardial effusion. 4. Lyme disease: question if false positive. Continue on Doxycycline as per primary team at this time 5. Fatigue 6. Athralgia -Again, multifactorial. With evidence of both pericardial and pleural effusion, question possible infectious or auto immune inflammation response. Will await final echo read. Agree with Primary team ordering auto-immune workout. 7. Asthma: Cautious use of anti-inflammatories in this patient. Would recommend continuing with Medrol dose taper at this time. Case has been discussed with Dr. Cary. Further recommendations regarding plan of care as per his assessment. I spent a total of 40 minutes on the date of service in preparation, delivery, documentation of the care provided to the patient excluding any time spent in the performance of separately billed services. HARSHIL Lopez [facility] Supervising Physician Co-Signing Physician Notes I have personally performed a history and physical examination on the patient. I have reviewed the advance practitioner's documentation, and I agree with, and take responsibility for the plan of care. 47-year-old female with acute arthralgia, and pleuropericarditis. Consider possible autoimmune etiology. Lyme screen, anaplasmosis, and babesiosis screens are negative. Agree with rheumatology evaluation and continue treatment with corticosteroids. Consider addition of colchicine pending discussion with rheumatology. Lasix as needed for symptom control. Results of echocardiogram reviewed demonstrating preserved LV and RV function without significant valvular pathology. Pericardial effusion is trivial, not hemodynamically significant. I spent a total of 35 minutes on the date of service in preparation, delivery, and documentation of the care provided to this patient, excluding any time spent in the performance of separately billed services. History of Present Illness Reason for Consultation: Pericardial effusion, volume overload Requesting Physician: Melodie beyer Attending Physician: Tabby Banuelos MD History of Present Illness HPI: Patient is a 47 year-old female with PMHx of Asthma, prior superficial thrombophlebitis of Left Upper extremity after an IV site requiring course of Eliquis (no longer on) GERD, and prophylactic bilateral mastectomy who presented to the ED with sudden onset shortness of breath and swelling x2.5 weeks. patient has reported that she had a recent Diagnoses of Lymes at [facility], but no formal western blot. She denies any knowledge of a tick bite and no rashes. patient states she has not been in the [place] or anywhere where there would be high probability of a tick. She denies any acute illness. Over the course of a week she gained 15-20lbs. She was placed on Doxycycline, and well as started in a steroid taper for complaints of general arthralgias after Toradol induced an asthma exacerbation. When feeling no better she was prompted to present to the ED fur further work up. Denies any knowledge of an auto-immune disease in herself, but reports a strong family history of both RA and Lupus. Chest CTA: There is no evidence of pulmonary embolus in the main, lobar, or segmental pulmonary arteries. 2. The heart is mildly enlarged and there is a small pericardial effusion 3. Small pleural effusions with dependent atelectasis.4. Dilatation of the pulmonary trunk suggests pulmonary artery hypertension. EKG on admission NSR possible left atrial enlargement. Rate 88bpm. Echocardiogram pending Troponin negative. BNP with mild elevation on admission 220. Electrolytes stable, renal function stable. No output documented and no weights to trend. Patient is resting comfortably in bed at this time. She states that she will still get slightly short of breath on exertion, an when attempting to lay flat. Leg swelling has reduced significantly per patient. Review of telemetry demonstrates SR 70-90's. No acute events overnight. Allergies Allergy/AdvReac Type Severity Reaction Status Date / Time azithromycin Allergy Intermediate tingly Verified 08/04/23 16:17 [From Zithromax Z-Shane] mouth and tongue Gadolinium-Containing Allergy Intermediate tingling Verified 08/04/23 16:17 Contrast Medi mouth and tongue Penicillins Allergy Intermediate tingly Verified 08/04/23 16:17 mouth and tongue contrast dye Allergy Intermediate tingling Uncoded 08/04/23 16:17 mouth and tongue sutures AdvReac Severe polysorb Uncoded 08/04/23 16:17 and monocryl - wound dehiscencse. Home Medications Medication Instructions Recorded Confirmed Type albuterol sulfate 90 mcg/actuation 1 inh inhalation UD PRN asthma 01/11/23 08/04/23 History aerosol inhaler fluticasone 250 mcg-salmeterol 50 1 ea inhalation BID 01/11/23 08/04/23 History mcg/dose blistr powdr for inhalation (Advair Diskus) levonorgestrel 21 mcg/24 hr (up to 1 device intrauterine CONTINOUS 01/11/23 08/04/23 History 8 years) 52 mg intrauterine device (Mirena) montelukast 10 mg tablet 10 mg PO HS 01/11/23 08/04/23 History famotidine 10 mg tablet 10 mg PO UD PRN gerd 03/01/23 08/04/23 History omeprazole magnesium 20 mg 20 mg PO DIRECTED PRN gerd 03/01/23 08/04/23 History tablet,delayed release (Prilosec OTC) albuterol sulfate 2.5 mg/3 mL 2.5 mg inhalation Q4H PRN Wheezing 08/04/23 08/04/23 History (0.083 %) solution for nebulization cetirizine 10 mg tablet (Zyrtec) 10 mg PO DAILY 08/04/23 08/04/23 History doxycycline hyclate 100 mg tablet 100 mg PO BID 08/04/23 08/04/23 History fluticasone propionate 50 2 spray intranasal DAILY 08/04/23 08/04/23 History mcg/actuation nasal spray,suspension prednisone 10 mg tablet 0 mg PO DIRECTED 08/04/23 08/04/23 History Patient History Medical History Family history of reaction to anesthesia father - nausea. Nausea after anesthesia Blood disorder Pt has hx of bleeding issues after surgery and wound dehiscence / testing done and inconclusive. GERD (gastroesophageal reflux disease) IBS (irritable bowel syndrome) History of blood clots s/p surgery , near iv placement area - right arm. 3 yr ago. Blood thinner and since discontinued. Asthma well controlled/last use rescue inhaler last week /weather changes percautionary /no symptoms. Surgical History History of D&C History of endoscopy History of colonoscopy History of colposcopy maybe around age 20-25. She's not 100% sure in that range when it occurred. S/P section H/O mastectomy 2019. Prophy for fam hx of breast cancer and many personal breast surgeries with implants failing in 2021 that were subsequently fixed Dec 2021; found pre-cancer at time of mastectomy. Family History Grandmother (Maternal) Breast cancer great grandmother Aunt Breast cancer maternal paternal Colorectal cancer paternal Father Prostate cancer Brother Prostate cancer Grandfather (Maternal) Prostate cancer Grandfather (Paternal) Prostate cancer Uncle Prostate cancer Denies family history of Ovarian cancer Social History Smoking Status: Former smoker Tobacco Type: Cigarettes Smoking End Date: 15 years ago; Do You Dip or Chew Tobacco: No; Hx Alcohol Use: No Hx Substance Use: No Preferred Language: Kyrgyz Communication Ability: Effective Clinical Partner Required: No Beliefs That Will Affect Care: None Current Living Situation: Spouse and Family Current Living Situation Comment: lives with and daughter Other Information That Helps Us Care for You: No Feels Safe at Home: Yes Safety Concerns: Feels Safe At This Time Assistive Devices: Glasses and Nebulizer Review of Systems Review of Systems: All systems reviewed & are unremarkable except as noted in HPI & below Physical Exam Constitutional: well developed and well nourished; no acute distress and not ill appearing Neck: normal visual inspection and trachea midline Respiratory: normal respiratory effort; no respiratory distress, no labored breathing, no retractions and no cough Auscultation: lungs clear to auscultation bilaterally; no crackles, no rales, no rhonchi and no wheezes Cardiovascular: Rate/Rhythm: regular rate and regular rhythm Heart Sounds: normal S1 and normal S2; no murmur Vessels: no JVD Extremities: + edema (Trace BLE) Skin: no rashes, warm and dry Psychiatric: A+Ox3, euthymic affect Results & Data Vital Signs (Past 12 Hours) Vital Signs Temp Pulse Pulse Resp BP Pulse Ox O2 Del Method 08/05/23 05:56 67 08/05/23 02:29 36.6 C 82 16 123/77 96 Room Air 08/04/23 22:32 92 H 08/04/23 22:30 36.7 C 88 16 134/85 98 Room Air 08/04/23 20:40 89 15 142/89 H 97 Room Air Laboratory Results Cardiac Enzymes 08/04/23 08/04/23 08/05/23 Range/Units 13:00 18:45 01:01 AST 18 (13-39) U/L Troponin I High Sens 3.8 3.9 4.2 (0-14) pg/ml B-Natriuretic Peptide 220 H (0-100) pg/ml Coagulation 08/04/23 Range/Units 13:00 PT 11.7 (9.0-12.0) Seconds APTT 24 (21-31) Seconds B-Natriuretic Peptide 220 H (0-100) pg/ml Lipids 08/05/23 Range/Units 01:01 Triglycerides 51 (0-150) mg/dl Cholesterol 145 (0-200) mg/dl HDL Cholesterol 42 mg/dl Cholesterol/HDL Ratio 3.5 (0-5) CBC 08/04/23 08/05/23 Range/Units 13:00 06:34 WBC 8.56 8.14 (4.8-10.8) K/ul RBC 3.65 L 3.71 L (4.20-5.40) M/uL Hgb 11.6 L 11.8 L (12.0-16.0) g/dl Hct 34.2 L 34.5 L (37.0-47.0) % Plt Count 237 257 (130-400) K/uL Neut # (Auto) 6.02 5.77 (1.40-6.50) K/uL Lymph # (Auto) 1.47 1.32 (1.20-3.40) K/uL Otoe # (Auto) 0.91 H 0.96 H (0.11-0.59) K/uL Eos # (Auto) 0.01 0.00 (0.00-0.50) K/uL Baso # (Auto) 0.07 0.03 (0.00-0.20) K/uL Comprehensive Metabolic Panel 08/05/23 Range/Units 01:01 Sodium 141 (136-145) mmol/L Potassium 3.8 (3.5-5.1) mmol/L Chloride 104 (98-107) mmol/L Carbon Dioxide 32 (21-32) mmol/L BUN 14 (6-23) mg/dl Creatinine 0.95 (0.6-1.2) mg/dl Glucose 75 (70-99(Fasting)) mg/dl Calcium 9.0 (8.6-10.3) mg/dl AST 18 (13-39) U/L ALT 47 (7-52) U/L Alkaline Phosphatase 38 (34-104) U/L Total Protein 6.6 (6.0-8.3) gm/dl Albumin 3.3 L (3.4-5.0) gm/dl Intake and Output 08/04/23 08/05/23 08/05/23 22:59 06:59 14:59 Intake Total 304.167 / 1004.167 200 / 1004.167 100 / 100 Balance 304.167 / 1004.167 200 / 1004.167 100 / 100 Intake: IV 304.167 / 904.167 100 / 904.167 100 / 100 Doxycycline Hyclate 100 mg In 100 / 100 100 / 100 Dextrose 5% Mini-B 100 ml @ 50 mls/hr IV Q12H BELEM Rx#:[id number] Magnesium Sulfate / D5w 1 gm In 254.167 / 254.167 100 ml @ 50 mls/hr IV Q2H BELEM Rx#:[id number] cefTRIAXone SODIUM 2,000 mg In 50 / 50 50 ml @ 100 mls/hr IV Q24H BELEM Rx#:[id number] Oral 100 / 100 Other: # Unmeasured Voids 1 Weight 92.2 kg 91.8 kg Weight Measurement Method Standing Scale Standing Scale (3) Volume overload Hypervolemia type: unspecified Qualified Code(s): E87.70 - Fluid overload, unspecified (7) Arthralgia Joint pain location: unspecified Qualified Code(s): M25.50 - Pain in unspecified joint
[2023-08-05] MEDS: CETIRIZINE HCL 10 MG TABLET PO SCH (08:14)
[2023-08-05] MEDS: FLUTICASONE PROPIONATE NA SPR 16 GM BTL SCH (08:14)
[2023-08-05] MEDS: FLUTICASONE/VILANTEROL 200/25MCG 14 PUFFS/INHALER INH SCH (08:15)
[2023-08-05] MEDS: POTASSIUM CHLORIDE 20 MEQ/15 ML UDC PO SCH (08:15)
[2023-08-05 08:19] LABS: Estimated Average Glucose 114 mg/dl; Hemoglobin A1C 5.6 % (4.5-5.6)
--- NOTE | 2023-08-05 10:46 | Electrocardiogram Report ---
Test Reason : Blood Pressure : / mmHG Vent. Rate : 088 BPM Atrial Rate : 088 BPM P-R Int : 118 ms QRS Dur : 082 ms QT Int : 346 ms P-R-T Axes : 071 041 -08 degrees QTc Int : 418 ms Normal sinus rhythm Possible Left atrial enlargement T wave abnormality, consider anterolateral ischemia Abnormal ECG No previous ECGs available Confirmed by Mckay Rose ([id number]) on 08/05/2023 10:46:37 AM Referred By: Confirmed By:Lorenzo Rose
--- NOTE | 2023-08-05 10:50 | Hospitalist Progress Note ---
Date of Service August 05, 2023 Assessment & Plan (1) Volume overload: (2) Dilation of pulmonary artery: (3) Anemia: (4) Arthralgia: (5) Fatigue: (6) Lyme disease: Plan 47 year old F who has a significant PMH of asthma, GERD, hx of prophylactic bilateral mastectomy who presents to ED 2/2 increasing shortness of breath and swelling x 2.5 weeks. Reported fatigue, myalgia, arthralgia over last 2.5 weeks. Over last week has noticed increased swelling of hands, face and lower extremities, notable 15-20lb weight gain. Dx with equivocal lyme test out in [place]. (Patient showed result on her phone. Lyme was reported as "Abnormal" but lyme IgG/IgM were reported as "Negat nabor") She was started on doxycycline for this. She was also recently started on steroid taper for arthralgias Strong FH of autoimmune with lupus and RA. Chest CTA did not show any PE but noted heart is mildly enlarged with a small pericardial effusion, small pleural effusions with dependent atelectasis and dilatation of the pulmonary trunk suggests pulmonary artery hypertension. EKG reviewed by me showed T wave inversions in V3 to V5 Troponin trend was normal. Echocardiogram showed EF of 60 to 65%, left ventricular wall motion is normal, right ventricular systolic function is normal, mild MR, trace TR, Doppler findings does not suggest pulmonary hypertension, trivial circumferential pericardial effusion with no echocardiographic indication of cardiac tamponade, small left pleural effusion. CRP was normal, ESR mildly elevated at 22, BNP 1220. Considering patient's history, family history and findings so far, patient has pleuropericarditis, unclear etiology. I discussed case with slip caster Dr. Cary as well as cassandra developer Dr. Ray. Dr. Ray will review tomorrow. Patient got Solu-Medrol today. Rheumatology recommends continuing prednisone 40 mg daily at this time. Patient has autoimmune/rheumatological labs pending Her Lyme test from outside hospital were equivocal Lyme screen here negative Will continue doxycycline Patient got IV Lasix on admission. Will give additional IV Lasix 20 mg today. Had hypokalemia and hypomagnesemia on presentation. These were repleted. Monitor and replete as needed. Asthma Prn albuterol DVT ppx: SQ lovenox Dispo: tele FULL CODE PCP: Goldie I spent a total of 60 minutes coordinating, documenting and providing care for this patient excluding time spent in performance of separately billed services Admission and Anticipated Discharge Date Admission Date: August 04, 2023 Subjective Patient seen and examined Patient reports that for over 2 weeks she has been having increased shortness of breath with activity, weight gain, increased leg swelling, puffiness in the face. She reported that she was told that she had Lyme's at [facility] and was prescribed doxycycline. Reports shortness better with Lasix she got on admission. Denied fever, chills, nausea, vomiting, abdominal pain, diarrhea Denies orthopnea, PND, cough, chest pain Physical Exam Constitutional: + well hydrated; no acute distress Eyes: PERRL, conjunctivae normal, anicteric sclerae ENMT: external ear and nose normal, oropharynx normal Respiratory: normal respiratory effort, lungs clear to auscultation Cardiovascular: Rate/Rhythm: regular rate and regular rhythm S1 S2 Gastrointestinal (Abdomen): normal bowel sounds, soft, nontender, no hepatosplenomegaly Musculoskeletal: Trace pedal edema Neurologic: PERRL, EOMI, accommodation nl, no face palsy, no dysarthria Psychiatric: A+Ox3, euthymic affect Results & Data Results & Data Vital Signs (Past 12 Hours) Vital Signs Temp Pulse Pulse Resp BP Pulse Ox O2 Del Method 08/05/23 05:56 67 08/05/23 02:29 36.6 C 82 16 123/77 96 Room Air Laboratory Results Abnormal lab results 08/04/23 08/05/23 08/05/23 Range/Units 18:45 01:01 06:34 RBC 3.71 L (4.20-5.40) M/uL Hgb 11.8 L (12.0-16.0) g/dl Hct 34.5 L (37.0-47.0) % Cavalier # (Auto) 0.96 H (0.11-0.59) K/uL ESR 22 H (0-20) mm/hr TIBC 221 L (250-450) mcg/dl Unsaturated IBC 143 L (155-355) mcg/dl Albumin 3.3 L (3.4-5.0) gm/dl (1) Volume overload Hypervolemia type: unspecified Qualified Code(s): E87.70 - Fluid overload, unspecified (4) Arthralgia Joint pain location: unspecified Qualified Code(s): M25.50 - Pain in unspecified joint
--- NOTE | 2023-08-05 10:59 | Electrocardiogram Report ---
Test Reason : Blood Pressure : / mmHG Vent. Rate : 072 BPM Atrial Rate : 072 BPM P-R Int : 120 ms QRS Dur : 072 ms QT Int : 382 ms P-R-T Axes : 063 040 046 degrees QTc Int : 418 ms Normal sinus rhythm Possible Left atrial enlargement Abnormal ECG When compared with ECG of 04-AUG-2023 12:42, (unconfirmed) Nonspecific T wave abnormality, improved in Inferior leads Nonspecific T wave abnormality has replaced inverted T waves in Lateral leads Confirmed by Mckay Rose ([id number]) on 08/05/2023 10:58:43 AM Referred By: REFERRED SELF Confirmed By:Lorenzo Rose
--- NOTE | 2023-08-05 11:37 | Electrocardiogram Report ---
Test Reason : Blood Pressure : / mmHG Vent. Rate : 065 BPM Atrial Rate : 065 BPM P-R Int : 112 ms QRS Dur : 088 ms QT Int : 438 ms P-R-T Axes : 055 034 030 degrees QTc Int : 455 ms Normal sinus rhythm Possible Left atrial enlargement Left ventricular hypertrophy T wave abnormality, consider anterior ischemia Abnormal ECG When compared with ECG of 04-AUG-2023 18:35, (unconfirmed) No significant change was found Confirmed by Mckay Rose ([id number]) on 08/05/2023 11:36:35 AM Referred By: REFERRED SELF Confirmed By:Lorenzo Rose
[2023-08-05] MEDS: FUROSEMIDE INJ 20 MG/2 ML VIAL IV ONE (15:11)
[2023-08-05] MEDS: ALBUTEROL 0.083% NEBU SOLN 3 ML VIAL INH PRN (15:25)
[2023-08-05] MEDS: DOXYCYCLINE HYCLATE 100 MG CAP PO SCH (20:26)
--- NOTE | 2023-08-06 00:43 | Ultrasound Report ---
Exam(s): US VENOUS RIGHT UPPER EXTREMITY EXAM: US Duplex Right Upper Extremity Veins CLINICAL HISTORY: Reason for exam: Pain/swelling. Rule out DVT. TECHNIQUE: Real-time duplex ultrasound scan of the right upper extremity veins integrating B-mode two-dimensional vascular structure, Doppler spectral analysis, color flow Doppler imaging and compression. COMPARISON: No relevant prior studies available. FINDINGS: Deep veins: Unremarkable. No evidence of DVT in the right upper extremity. Superficial veins: Thrombosis of the right cephalic vein in the upper arm and antecubital fossa consistent with superficial thrombophlebitis. Soft tissues: No acute findings. IMPRESSION: Thrombosis of the right cephalic vein in the upper arm and antecubital fossa consistent with superficial thrombophlebitis. Electronically signed by: Delgado Stanton MD 08/06/23 00:42 AM
[2023-08-06 06:40] LABS: Hematocrit (blood only) 34.6 % (37.0-47.0); Hemoglobin 11.6 g/dl (12.0-16.0); Mean Corpuscular Hemoglobin 31.3 pg (25.0-34.0); Mean Corpuscular Hgb Conc 33.5 g/dL (32.0-36.0); Mean Corpuscular Volume 93.3 fL (80.0-100.0); Mean Platelet Volume 11.2 fL (9.4-12.4); Platelet Count 239 K/uL (130-400); RDW Coefficient of Variation 12.6 % (11.5-14.5); RDW Standard Deviation 42.9 fL (36.4-46.3); Red Blood Count 3.71 M/uL (4.20-5.40); White Blood Count 8.36 K/ul (4.8-10.8)
[2023-08-06 07:03] LABS: BUN Creatinine Ratio 15.5 (10-20); Calcium 8.8 mg/dl (8.6-10.3); Creatinine Clr Calc Pharmacy 78.2 ml/min; Est GFR (Non-African American) 65.6 ml/min; Magnesium 1.9 mg/dl (1.7-2.4); Phosphorus 4.6 mg/dl (2.5-4.9); Potassium 3.9 mmol/L (3.5-5.1)
[2023-08-06] MEDS: predniSONE 20 MG TAB PO SCH (07:32)
[2023-08-06 07:33] VITALS: RESP 18
--- NOTE | 2023-08-06 07:39 | Rheumatology Consultation ---
Rheumatology Consultation DOS August 06, [address] Banuelos Attending Physician Dr Luong Reason for Consultation ? autoimmune process Assessment & Plan (1) Pleuropericarditis: she presented with 2-1/2 weeks of increasing arthralgias, edema and fatigue along with some fevers and chills. [place] to have potential Lyme disease and started on doxycycline and steroids but her symptoms had worsened so she presented to the local hospital for admission. Recent imaging showed pericardial and pleural effusions. Concern for possible autoimmune process given family history. Autoimmune testing is pending. She was started on IV steroids and continued on doxycycline. She is doing better. Arthralgias have resolved for the most part As well as her peripheral edema. Differential would include a viral illness verses potential Lyme ( although less likely given no exposure and repeat testing was negative) verses autoimmune process which would include RA, CTD or sarcoid ( sarcoid is less likely given no hilar adenopathy noted on CT imaging) (2) Arthralgia: see above Joint pain location: unspecified Qualified Code(s): M25.50 - Pain in unspecified joint Plan 1. await autoimmune testing 2. start oral prednisone today at 40 mg daily and taper as follows -40 mg daily for 4 days, 30 mg daily for 4 days, 20 mg daily for 4 days, 10 mg daily for 4 days, 5 mg daily for 4 days then stop 3. would check parvo IgG and IgM antibodies - would see if could add on to recent labs 4. will arrange outpatient Rheumatology follow-up in 2-3 weeks 5. thank you for the consult and involving me in this patient's care History of Present Illness Reason for Consultation: ?autoimmune disease Requesting Physician: Dr Banuelos Attending Physician: Tabby Banuelos MD History of Present Illness Brionna Is a 47-year-old female who presented to the hospital over the weekend with increasing shortness of breath, arthralgias and weight gain. Imaging had noted mild pericardial effusion as well as pleural effusions and concern for pleural pericarditis. She reports that her symptoms started the week before . She states that she started to feel sick and had diffuse joint pains and muscle pains. Also had some neck pains. She felt like she was going through menopause as she was feeling hot and cold. she reports that she went to [place] over the and was not feeling well. She denied any rashes. She had noted some mild swelling in her ankles. She was seen in the [place] ER at [facility] and white count was noted to be low at 2.33 with a decreased platelet count of 103. She had some decreased absolute lymphocyte and absolute neutrophil count as well. She was felt to have a viral process and discharged. She had been screen for COVID and RSV and flu and that was negative. Her kidney function and liver function studies were normal. She states that she came back to [place] and was still not feeling well. 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 She went back to [facility] and had blood work done that showed a mildly elevated C-reactive protein Lyme antibody reflex testing was reported positive but also the Lyme reflex IgG and IgM were reported negative. I am able to review these results through Care everywhere.bIt has unclear if the reported positive Lyme testing Is the screen that is positive but then the antibody or Western blot was negative. The results are not reported clearly through the [facility] system. Her sedimentation rate was normal. Again her white count was low with anemia at 10.6 which was new over the last 2 weeks but platelet count was normal. She again had a low absolute lymphocyte count. Looking back at some CBC these done through [facility] her absolute lymphocyte count has been low in the past. She reports a strong family history of autoimmune diseases with lupus and RA in the family. She also reports that her Maternaluncle has sarcoid. her parents do not have any autoimmune diseases though. She denied any rashes. She denies any wrists for tick exposure. she was started on doxycycline for possible Lyme as well as some steroids. She was seen by her PCP August 01 for these ongoing complaints. She was instructed that if her symptoms worsen to be evaluated again. She had had an EKG during her PCP visit that was normal. Over the weekend she started getting more short of breath and noted that she gained about 20 lb and went to the emergency room. Her CT of the chest did not show any pulmonary embolisms but did show some pericardial and pleural effusions. An echo was done that Showed a normal ejection fraction. There was concern for possible autoimmune syndrome so many autoimmune labs were ordered. She was placed on IV steroids and also had the doxycycline continue. Lyme testing at the hospital was normal. She has remained being anemic but better than the value at [facility]. Her absolute lymphocyte count has been normal. Her sed rate was mildly elevated at 22 but her CRP was normal. The hospitalist service contacted me yesterday and we discuss the case. Would switch to oral steroids today. She denies any inflammatory eye disease or mouth ulcers. Her joint pains are better. She does still have some neck pain. She reports that while in [place] she had x-rays of her neck and they told her she had some arthritis of the neck. She reports prior to her symptoms starting 2 weeks ago she was feeling okay. She denied any sick contacts, food poisoning or any illness prior to her symptoms starting. She denies any vaccine or any other life events prior to all these symptoms starting. Allergies Allergy/AdvReac Type Severity Reaction Status Date / Time azithromycin Allergy Intermediate tingly Verified 08/04/23 16:17 [From Zithromax Z-Shane] mouth and tongue Gadolinium-Containing Allergy Intermediate tingling Verified 08/04/23 16:17 Contrast Medi mouth and tongue Penicillins Allergy Intermediate tingly Verified 08/04/23 16:17 mouth and tongue contrast dye Allergy Intermediate tingling Uncoded 08/04/23 16:17 mouth and tongue sutures AdvReac Severe polysorb Uncoded 08/04/23 16:17 and monocryl - wound dehiscencse. Home Medications Medication Instructions Recorded Confirmed Type albuterol sulfate 90 mcg/actuation 1 inh inhalation UD PRN asthma 01/11/23 08/04/23 History aerosol inhaler fluticasone 250 mcg-salmeterol 50 1 ea inhalation BID 01/11/23 08/04/23 History mcg/dose blistr powdr for inhalation (Advair Diskus) levonorgestrel 21 mcg/24 hr (up to 1 device intrauterine CONTINOUS 01/11/23 08/04/23 History 8 years) 52 mg intrauterine device (Mirena) montelukast 10 mg tablet 10 mg PO HS 01/11/23 08/04/23 History famotidine 10 mg tablet 10 mg PO UD PRN gerd 03/01/23 08/04/23 History omeprazole magnesium 20 mg 20 mg PO DIRECTED PRN gerd 03/01/23 08/04/23 H istory tablet,delayed release (Prilosec OTC) albuterol sulfate 2.5 mg/3 mL 2.5 mg inhalation Q4H PRN Wheezing 08/04/23 08/04/23 History (0.083 %) solution for nebulization cetirizine 10 mg tablet (Zyrtec) 10 mg PO DAILY 08/04/23 08/04/23 History doxycycline hyclate 100 mg tablet 100 mg PO BID 08/04/23 08/04/23 History fluticasone propionate 50 2 spray intranasal DAILY 08/04/23 08/04/23 History mcg/actuation nasal spray,suspension prednisone 10 mg tablet 0 mg PO DIRECTED 08/04/23 08/04/23 History Patient History Medical History Family history of reaction to anesthesia father - nausea. Nausea after anesthesia Blood disorder Pt has hx of bleeding issues after surgery and wound dehiscence / testing done and inconclusive. GERD (gastroesophageal reflux disease) IBS (irritable bowel syndrome) History of blood clots s/p surgery , near iv placement area - right arm. 3 yr ago. Blood thinner and since discontinued. Asthma well controlled/last use rescue inhaler last week /weather changes percautionary /no symptoms. Surgical History History of D&C History of endoscopy History of colonoscopy History of colposcopy maybe around age 20-25. She's not 100% sure in that range when it occurred. S/P section H/O mastectomy 2019. Prophy for fam hx of breast cancer and many personal breast surgeries with implants failing in 2021 that were subsequently fixed Dec 2021; found pre-cancer at time of mastectomy. Family History Grandmother (Maternal) Breast cancer great grandmother Aunt Breast cancer maternal paternal Colorectal cancer paternal Father Prostate cancer Brother Prostate cancer Grandfather (Maternal) Prostate cancer Grandfather (Paternal) Prostate cancer Uncle Prostate cancer Denies family history of Ovarian cancer Social History Smoking Status: Former smoker Tobacco Type: Cigarettes Smoking End Date: 15 years ago; Do You Dip or Chew Tobacco: No; Hx Alcohol Use: No Hx Substance Use: No Preferred Language: Ukrainian Communication Ability: Effective Mapping Technician Required: No Beliefs That Will Affect Care: None Current Living Situation: Spouse and Family Current Living Situation Comment: lives with and daughter Other Information That Helps Us Care for You: No Feels Safe at Home: Yes Safety Concerns: Feels Safe At This Time Assistive Devices: Glasses and Nebulizer Review of Systems Constitutional: Weight gain, fevers, chills Eyes: itchy eyes today but no conjunctivitis Ear, Nose, Mouth, Throat: normal Respiratory: shortness of breath Cardiovascular: Additional Comments: lower extremity edema Gastrointestinal: normal Genitourinary: normal Musculoskeletal: joint pain, swelling Integumentary: normal Physical Exam Constitutional: examined sitting up in bed, no acute distress alert and oriented x3 Eyes: no conjunctivitis noted, EOMI Neck: no adenopathy, thyroid normal Respiratory: clear to auscultation with no wheezes, rales or rhonchi Cardiovascular: RRR, no murmur, no edema Gastrointestinal (Abdomen): normal bowel sounds, soft, nontender, no hepatosplenomegaly Musculoskeletal: no synovitis noted to the hands or feet. Had some tenderness to palpation of the elbows but normal extension and flexion. No knee effusions noted Skin: no rashes, warm and dry Results & Data Vital Signs (Past 12 Hours) Vital Signs Temp Pulse Pulse Resp BP Pulse Ox O2 Del Method 08/06/23 07:32 36.7 C 68 18 137/91 97 Room Air 08/06/23 03:22 36.7 C 64 14 144/97 H 96 Room Air 08/05/23 23:44 36.6 C 74 18 124/80 98 Room Air 08/05/23 22:02 69 Laboratory Results reviewed Diagnostic Findings reviewed
[2023-08-06 11:51] VITALS: BP 116/75; PULSE 80; TEMP 97.9; O2SAT 95
--- NOTE | 2023-08-06 12:27 | Discharge Summary ---
Date of Service August 06, 2023 Admission HPI Per Admitting Provider This is a 47 year old F who has a significant PMH of asthma, GERD, hx of prophylactic bilateral mastectomy who presents to ED 2/2 increasing shortness of breath and swelling x 2.5 weeks. Her sx all seemed to originate starting on July 15 when she went out for a walk. She was trying to exercise and get steps in. Whenever she was almost done she got terrible low back pain. When she got home she was getting hot/cold flashes for 3 days. She then went to the ER in [place] because she was now having joint paint and muscle pain all over along with fatigue. She was encouraged to be re evaluated if she didn't feel any better. She initially thought she was feeling better, but symptoms got worse to she represented back to the ER in [place] due to having swelling in face,foot and ankles. She was seen in [place] ED due to being in the area for work. She tried to sleep reclined but her sx worsened. She developed more swelling. In [place] ED she had imaging done that showed arthritis in c5-c6. She also was tested for lyme. She was finally diagnosed with lyme disease on saturday and started on oral doxycycline. She had an ESR/CRP done and her ESR was normal and CRP mildly elevated. Her BNP at that time was also unremarkable. She was initially started on prednisone until the lymes resulted. When she recently went for PCP follow up she was short of breath going into the appointment. She noted at the appt she had went from 190lb to 209lbs. Since taking the steroids and doxycycline she still feels terrible. Up until July 15 she had been in her normal state of health without any significant cardiac disease history. She has a FH of autoimmune with Lupus and RA. She has a dog, but does not recall a tick or insect bite. In ED patient remained hemodynamically stable. Her lab abnormalities consist of H&H 11.6 and 34.2, potassium 3.2, mag 1.6, AST 54, BNP 220 and urinalysis with trace ketones. Her Anaplasma BC smear was negative. Pertinent imaging findings include mildly enlarged heart with small pericardial effusion, small pleural effusions with dependent atelectasis, dilatation of the pulmonary trunk suggesting pulmonary hypertension. Admission Exam Per Admitting Provider GENERAL APPEARANCE: AxOx4, mildly anxious, well spoken with detailed timeline HEENT: NC, AT. MMM. EOMI, clear conjunctiva, oropharynx clear. mild swelling of jowls, no clear LAD NECK: Supple without lymphadenopathy. No stiffness or restricted ROM. HEART: Normal rate and regular rhythm, normal S1/S1, no m/r/g LUNGS: CTAB, moving air well, no appreciable crackles ABDOMEN: Soft, mildly distended/full with good bowel sounds heard. no fluid shift BACK: No CVAT, no obvious deformity. EXTREMITIES: Without cyanosis, clubbing, trace edema in BLE NEUROLOGICAL: Grossly nonfocal. Alert and oriented, moving all 4 extremities. CN not formally tested but appear grossly intact. Observed to ambulate with normal gait. Skin: Warm and dry without any rash. Principal Diagnosis Pleuropericarditis Anemia Right cephalic vein thrombosis/superficial thrombophlebitis Discharge Exam Constitutional + well hydrated; no acute distress Eyes PERRL, conjunctivae normal, anicteric sclerae ENMT external ear and nose normal, oropharynx normal Respiratory normal respiratory effort, lungs clear to auscultation Cardiovascular Rate/Rhythm: regular rate and regular rhythm S1 S2 Gastrointestinal (Abdomen) normal bowel sounds, soft, nontender, no hepatosplenomegaly Musculoskeletal No pedal edema Neurologic PERRL, EOMI, accommodation nl, no face palsy, no dysarthria Psychiatric A+Ox3, euthymic affect Discharge Data Allergies Allergy/AdvReac Type Severity Reaction Status Date / Time azithromycin Allergy Intermediate tingly Verified 08/04/23 16:17 [From Zithromax Z-Shane] mouth and tongue Gadolinium-Containing Allergy Intermediate tingling Verified 08/04/23 16:17 Contrast Medi mouth and tongue Penicillins Allergy Intermediate tingly Verified 08/04/23 16:17 mouth and tongue contrast dye Allergy Intermediate tingling Uncoded 08/04/23 16:17 mouth and tongue sutures AdvReac Severe polysorb Uncoded 08/04/23 16:17 and monocryl - wound dehiscencse. Consultations 08/04/23 17:00 ED Decision to Admit Stat 08/04/23 17:28 Consult Cardiology Routine 08/05/23 13:56 Consult Rheumatology Routine Ordered Studies 08/04/23 13:02 CT abd pelvis IV con only Stat CT angio chest PE protocol Stat CT soft tissue neck w con Stat US venous doppler LE BI Stat 08/05/23 17:07 US venous doppler UE RT Urgent Hospital Course (1) Volume overload: (2) Dilation of pulmonary artery: (3) Anemia: (4) Arthralgia: (5) Fatigue: (6) Lyme disease: Plan 47 year old F who has a significant PMH of asthma, GERD, hx of prophylactic bilateral mastectomy who presents to ED 2/2 increasing shortness of breath and swelling x 2.5 weeks. Reported fatigue, myalgia, arthralgia over last 2.5 weeks. Over last week has noticed increased swelling of hands, face and lower extremities, notable 15-20lb weight gain. Dx with equivocal lyme test out in [place]. (Patient showed result on her phone. Lyme was reported as "Abnormal" but lyme IgG/IgM were reported as "Negative") She was started on doxycycline for this. She was also recently started on steroid taper for arthralgias Strong FH of autoimmune with lupus and RA. Chest CTA did not show any PE but noted heart is mildly enlarged with a small pericardial effusion, small pleural effusions with dependent atelectasis and dilatation of the pulmonary trunk suggests pulmonary artery hypertension. EKG reviewed by me showed T wave inversions in V3 to V5 Troponin trend was normal. Echocardiogram showed EF of 60 to 65%, left ventricular wall motion is normal, right ventricular systolic function is normal, mild MR, trace TR, Doppler findings does not suggest pulmonary hypertension, trivial circumferential pericardial effusion with no echocardiographic indication of cardiac tamponade, small left pleural effusion. CRP was normal, ESR mildly elevated at 22, BNP 1220. Considering patient's history, family history and findings so far, patient has pleuropericarditis, unclear etiology. I discussed case with instructor looping Dr. Cary as well as director alumni relations Dr. Ray. Payment Analyst reviewed and recommends Prednisone taper 40mg to be tapered by 10mg every 4 days until stopped Autoimmune/Rheum labs ordered Patient to follow up pending labs with Rheumatology Her Lyme test from outside hospital were equivocal Lyme screen here negative Will continue doxycycline she was on prior to admission to complete treatment Got a few doses IV Lasix inpatient. No lasix on discharge Had hypokalemia and hypomagnesemia on presentation. These normalized after repletion Reported right arm swelling and tenderness from IV site Doppler showed right cephalic vein thrombosis/superficial thrombophlebitis Symptomatic management Asthma Prn albuterol Total Time Total Time Spent Total Time Spent (In Minutes): 45 Total Time Includes: Examination of the Patient, Discharge Planning, Medication Reconciliation and Communication With Other Providers Discharge Plan Discharge Items Patient Disposition: Home - Self-Care Reason For Visit: Swelling, shortness of breath Discharge Diagnosis: Pleuropericarditis Anemia Right cephalic vein thrombosis/superficial thrombophlebitis Condition on Discharge: Good Activity: Resume your previous activity Non-emergency contact: Primary Care Provider Call non-emergency contact if: you have any medication questions Follow-up/Referrals: Pablo Ray MD [Physician] - (Date & Time 08/21/2023 2:30 PM Provider Chapito Haro PA-C Department Rheumatology [facility] ) Song Amezcua MD [Primary Care Provider] - (Date & Time 08/09/2023 3:20 PM Provider Song Amezcua MD Department Family Practice [facility] ) Diet: Regular Addtl Attending Provider Instructions: Ms Troy Bedolla came to the hospital complaining of fatigue, swelling in legs, face and weight gain. You were extensively evaluated and noted to have Pleuropericarditis. You are being discharged on Prednisone taper (40mg for 4 days, 30mg for 4 days, 20mg for 4 days, 10mg for 4 days, then stop) Please complete the doxycycline you were previously on. Please follow up Rheumatology outpatient regarding results which are still pending Please ensure follow up with your Primary Doctor It was a pleasure taking care of you Pending Studies at Discharge: Yes (Autoimmune/Rheum workup) Stand-Alone Forms: My makexyz, Smoking Cessation Medications and DC Order Prescriptions: Continued Mirena 21 mcg/24 hours (8 yrs) 52 mg intrauterine device 1 device intrauterine CONTINOUS Patient Comments: current montelukast 10 mg tablet 10 mg PO HS albuterol sulfate 90 mcg/actuation HFA aerosol inhaler 1 inh inhalation UD PRN (Reason: asthma) fluticasone propion-salmeterol [Advair Diskus] 250-50 mcg/dose blister with device 1 ea inhalation BID famotidine 10 mg Tablet 10 mg PO UD PRN (Reason: gerd) omeprazole magnesium [Prilosec OTC] 20 mg Tablet,Delayed Release (Dr/Ec) 20 mg PO DIRECTED PRN (Reason: gerd) albuterol sulfate 2.5 mg /3 mL (0.083 %) solution for nebulization 2.5 mg inhalation Q4H PRN (Reason: Wheezing) cetirizine [Zyrtec] 10 mg Tablet 10 mg PO DAILY fluticasone propionate 50 mcg/actuation [place],Suspension 2 spray INTRANASAL DAILY Rx Instructions: administer into each nostril doxycycline hyclate 100 mg tablet 100 mg PO BID Rx Instructions: STARTED 08/02/23 FOR 14 DAYS Changed prednisone 10 mg tablet See Rx Instructions .ROUTE .COMPLEX Qty: 40 0RF Rx Instructions: Take 40mg daily for 4 days, then 30mg daily for 4 days, then 20mg daily for 4 days, then 10mg daily for 4 days and stop Discharge Orders: Discharge Order (Routine); Ordered 08/06/23 Ordered By: Tabby Banuelos Admission Data Admit Date/Time: 08/04/23 17:28 Attending Provider: Tabby Banuelso I. Admit Provider: Casi Carranza Primary Care Provider: Song Amezcua Other Providers: Rosio Harvey; Pablo Ray; Casi Carranza Other Interventions: Discharge Summary Assessment (RN) Last Done: 08/06/23 12:35
[2023-08-07 18:47] LABS: Babesia microti DNA Not Detected (Not Detected)
[2023-08-08 23:02] LABS: Complement C3 75 mg/dL (83-193); Complement Total(CH50) 36 U/mL (31-60)
[2023-08-10 15:17] LABS: Parvovirus IgG 7.9 (<0.9); Parvovirus IgM 20.5 (<0.9)
== END 2023-08-06 13:35 | disposition home or self-care (01) | DRG 315 ==
LOC: ED 12:32 → SUATTDRO 17:28 → EDINP 17:28 → 2N 21:50